=== PATIENT | male | born 1940 | race Caucasian/White ===

== ENCOUNTER → 2021-09-16 | Outpatient (REF) | payer OTHER, SELFPAY ==
[2021-09-16 08:57] LABS: Hematocrit 45.7 % (40-54); Hemoglobin 15.5 g/dL (13.0-16.5); Mean Corp Hgb Conc 33.9 g/dL (32-36); Mean Corpuscular Hgb 30.8 pg (27.0-32.0); Mean Corpuscular Volume 90.7 fL (80-94); Platelet Count 188 K/mm3 (150-450); RBC Distribution Width CV 12.9 % (11.6-14.6); RBC Distribution Width SD 42.5 fl (35.1-43.9); Red Blood Count 5.04 M/mm3 (4.6-6.2)
[2021-09-16 09:37] LABS: ALB/GLOB Ratio 0.9 RATIO (0.9-2.4); AST(SGOT) 19 U/L (15-37); Alanine Aminotransfer ALT/SGPT 20 U/L (16-61); Albumin, Serum 3.1 g/dL (3.2-5.0); Alkaline Phosphatase 86 U/L (45-117); Anion Gap 6 (5-15); BUN 12 mg/dL (7-18); BUN/Creat Ratio 10.8 RATIO (10-20); Calcium,Total 8.5 mg/dL (8.5-10.1); Chloride 108 mmol/L (98-107); Creatinine, Serum 1.11 mg/dL (0.70-1.30); EST Glomerular Filtration Rate 67 mL/min (>60); Est Glom Filt Rate - Afr Amer 81 mL/min (>60); Globulin 3.5 g/dL (2.2-4.2); Glucose 104 mg/dL (74-106); Potassium 4.2 mmol/L (3.5-5.1); Protein, Total 6.6 g/dL (6.4-8.2); Sodium Level 141 mmol/L (136-145); Thyroid Stim Hormone (TSH) 1.46 uIU/mL (0.358-3.74)
== END | disposition home or self-care (01) ==
LOC: OLS.BROOKB 07:42
PROVIDERS: Visit Provider Family Medicine
DX: E03.9 Hypothyroidism, unspecified (principal); F03.90 Unspecified dementia, unspecified severity, without behavioral disturbance, psychotic disturbance, mood disturbance, and anxiety
CPT/HCPCS: 36415; 80053; 84443; 85027

== ENCOUNTER 2021-12-09 11:40 | Emergency (ER) | payer MEDICARE, OTHER, SELFPAY ==
[2021-12-09 11:41] VITALS: BP 123/92; PULSE 98; RESP 18; TEMP 36.6; O2SAT 97; BMI 23.1
--- NOTE | 2021-12-09 11:56 | RAD_ITS ---
STUDY: X-RAY CHEST REASON FOR EXAM: Male, 81 years old. Confusion and increased weakness. TECHNIQUE: Single AP portable view of the chest. COMPARISON: None. FINDINGS: EKG electrodes are seen. The lungs are clear and expanded. There is no demonstrated pleural abnormality. There is mild cardiac enlargement. Normal mediastinum and luis. Normal visualized pulmonary arteries. There is atherosclerotic calcification of the aortic arch with tortuosity. Normal visualized thoracic spine. Normal visualized ribs, clavicles, and shoulders. There is no demonstrated abnormality of the visualized soft tissue structures of the upper abdomen. RAD/Chest 1 View (Portable) IMPRESSION: Mild cardiomegaly. The lungs are clear. Electronically Signed: Tahir Reaves MD at 13:19 EDT ,
--- NOTE | 2021-12-09 11:56 | EKG12_ITS ---
Test Reason : Blood Pressure : / mmHG Vent. Rate : 084 BPM Atrial Rate : 084 BPM P-R Int : 162 ms QRS Dur : 092 ms QT Int : 362 ms P-R-T Axes : -11 039 011 degrees QTc Int : 427 ms Sinus rhythm with marked sinus arrhythmia Low voltage QRS (Limb Leads) Confirmed by BELKIS GAY, ROBERTO ([id number]), avid editor GUANAKO GONZALEZ ([id number]) on 12/11/2021 12:58:01 PM Referred By: Confirmed By:ROBERTO TAMAYO MD
--- NOTE | 2021-12-09 11:56 | CT_ITS ---
STUDY: CT BRAIN WITHOUT CONTRAST REASON FOR EXAM: Male, 81 years old. Mental status change RADIATION DOSAGE (If Supplied By Facility): CTDIvol = ( 44.99 ) mGy, DLP = ( 1659.71 ) mGycm TECHNIQUE: Transaxial CT imaging of the brain was performed without administration of intravenous contrast material. Individualized dose optimization techniques were used for this CT. COMPARISON: No relevant priors. FINDINGS: Normal soft tissue structures. Normal calvarium. There is moderate cerebral atrophy with widening of the extra-axial spaces and ventricular dilatation. There are areas of decreased attenuation within the white matter tracts of the supratentorial brain, consistent with microvascular disease changes. There is a 1.2 cm lacuna in the left basal ganglion. The acuity cannot be determined on a single study. There is also evidence of a tiny lacuna in the head of the left caudate nucleus. Normal brainstem. Normal cerebellum. There is no intracranial hemorrhage. There are no findings of an acute ischemic infarction. Mild degree of mucosal thickening of the maxillary sinuses with partial opacification of the ethmoid sinuses bilaterally. CT/Brain/Head without Contrast IMPRESSION: Chronic involutional changes of the brain. 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 Sinusitis. Electronically Signed: Tahir Reaves MD at 13:17 EDT ,
--- NOTE | 2021-12-09 11:58 | EX.ED.DYSGE1 ---
HPI History of Present Illness Chief Complaint: Weakness Detail of Chief Complaint: Generalized weakness, confusion Informant: patient and family Narrative Narrative: Patient presents the emergency department with complaint of generalized weakness and increased confusion over the last 3 days. Patient in the memory care unit at [place]. He has had a little bit of a cough and a runny nose. No fevers noted. Patient did have 3 episodes of diarrhea last night. He was incontinent which is unusual. Patient has had remote history of prostate cancer with prior prostatectomy. Patient denies head pain. He denies abdominal pain. He does state that he does have chest pain however he does not describe further. Patient is a poor historian due to his history of dementia. He denies dysuria. [facility] Medical History (Updated 12/09/21 @ 15:[address] Niko Lazo DO) Dementia History of prostate cancer [place] (hard of hearing) Home Medications donepezil 10 mg tablet 10 mg PO DAILY 12/09/21 [History Last Taken Unknown] fluticasone furoate 27.5 mcg/actuation nasal spray,suspension (Flonase Sensimist) 2 spray intranasal DAILY 12/09/21 [History Last Taken Unknown] levothyroxine 150 mcg tablet 150 mcg PO DAILY 12/09/21 [History Last Taken Unknown] loratadine 10 mg tablet 10 mg PO DAILY 12/09/21 [History Last Taken Unknown] memantine 5 mg tablet 5 mg PO BID 12/09/21 [History Last Taken Unknown] nirmatrelvir 300 mg (150 mg x2)-ritonavir 100 mg tablet,dose pack(EUA) (Paxlovid) See Rx Instructions PO .COMPLEX #30 tabs 12/09/21 [Rx Last Taken Unknown] Allergy/AdvReac Type Severity Reaction Status Date / Time No Known Allergies Allergy Verified 12/09/21 11:43 Surgical History (Updated 12/09/21 @ 13:01 by Elpidio Hernández RN) History of prostatectomy Hx of cholecystectomy Hx of eye surgery Social History Smoking Status: Never smoker ROS ROS ED ROS Narrative Confusion Review of Systems ROS Unobtainable: other Constitutional Constitutional ED: Reports lethargy; Denies chills, fever(s), sweats or weight loss Eyes Eyes: Denies blurry vision, change in vision or diplopia ENT ENT ED: Reports rhinorrhea; Denies sore throat Cardiovascular Cardiovascular: Reports chest pain; Denies orthopnea or racing heartbeat Respiratory/Chest Respiratory/Chest: Reports cough; Denies dyspnea, dyspnea on exertion, orthopnea or sputum Gastrointestinal Gastrointestinal: Denies abdominal pain, diarrhea, nausea or vomiting Genitourinary Genitourinary ED: Denies dysuria, hematuria or urinary frequency Musculoskeletal Musculoskeletal: Denies arthralgias, back pain, myalgias or neck pain Integumentary Denies abscess, Abrasions or rash Neurologic Neurologic: Reports weakness; Denies headache(s) Psychiatric Psychiatric: Denies anxiety, depression or suicidal thoughts Endocrine Endocrinology: Denies polydipsia, polyphagia or polyuria Hematologic/Lymphatic Hematologic/Lymphatic: Denies easy bleeding, easy bruising or lymphadenopathy Allergic/Immunologic Allergic/Immunologic ED: Denies mouth swelling, tongue swelling or urticaria EXAM Physical Exam Const Vital Signs: 12/09/21 11:41 12/09/21 12:59 12/09/21 13:33 Temperature 97.8 F Temperature Source Temporal Pulse Rate 98 80 Respiratory Rate 18 22 H Respiratory Effort Normal Non-Labored Respiratory Pattern Normal Blood Pressure 123/92 H 120/75 Blood Pressure Mean 102 90 Pulse Ox 97 94 Oxygen Delivery Method Room Air Room Air Positive well nourished and well developed General Appearance ED: well developed and NAD HEENT Reports TM's clear and moist mucous membranes normocephalic and atraumatic; Negative for trauma or tenderness Tympanic Membrane ED: Yes TM's clear Eyes PERRL and EOMs intact bilaterally General Eye ED: Negative for pale conjunctiva or scleral icterus Neck no lymphadenopathy, supple and no JVD General: Negative for tenderness Chest Wall inspection of chest normal and palpation of chest normal Chest: Negative for tenderness Resp normal respiratory effort and clear to auscultation bilaterally Effort and Inspection: Negative for respiratory distress or pain with movement Auscultation: Negative for rhonchi, wheezes or diminished lung sounds Cardio regular rate, regular rhythm, S1 normal heart sound, S2 normal heart sound and no murmurs Peripheral Pulses: pulses 2+ throughout GI normal to inspection, nondistended, normoactive bowel sounds, soft to palpation, non-tender, non-distended and no masses Back/Spine no CVA tenderness and no thoracic nor lumbar tenderness Extremity normal to inspection General Extremety ED: Negative for edema General Extremity: Negative for edema Neuro oriented x3, CN's II-XII intact bilaterally, no sensory deficits noted and gait normal Sensorium / Orientation: awake, alert, oriented to person, oriented to place and oriented to time Motor Exam: strength 5/5 throughout and strength abnormal Psych mental status grossly normal Skin no rashes or lesions noted and no wounds MDM MDM MDM Narrative Medical decision making narrative: IV line established. EKG obtained showed a sinus rhythm with a rate of 84 bpm with occasional PACs. Lab work-up essentially unremarkable. Troponin was normal. CT brain unremarkable. Chest x-ray showed nothing acute. Patient was positive for COVID-19. We attempted to obtain a urinalysis unsuccessfully. We did do a bladder scan he had 160 cc of urine in the bladder. Patient's becoming agitated and family did not want us to forcibly perform a straight cath for urine as patient's likely symptomatology related to COVID-19 infection. They will be able to check a urine at the [facility]. Patient is able to go on his own. Patient will be started on Paxil of it. Patient will be discharged back to [facility]. Lab Data Attestation: I reviewed the patient's lab results. Labs: Laboratory Results - last 24 hr 12/09/21 12/09/21 12:33 12:33 WBC 9.4 RBC 5.50 Hgb 16.6 H Hct 49.5 MCV 90.0 MCH 30.2 MCHC 33.5 RDW Std Deviation 43.4 RDW Coeff of Leonel 13.2 Plt Count 174 MPV 11.1 Immature Gran % (Auto) 0.400 Neut % (Auto) 75.3 H Lymph % (Auto) 13.9 L [place] % (Auto) 9.5 Eos % (Auto) 0.6 Baso % (Auto) 0.3 Absolute Neuts (auto) 7.1 Absolute Lymphs (auto) 1.31 Nucleated RBC % 0 Sodium 140 Potassium 3.7 Chloride 107 Carbon Dioxide 27.0 Anion Gap 6 BUN 11 Creatinine 1.11 Estim Creat Clear Calc 56.29 Est GFR (MDRD) Af Amer 81 Est GFR (MDRD) Non-Af 67 BUN/Creatinine Ratio 9.9 L Glucose 119 H Calcium 8.8 Troponin I High Sens 14 Radiography Diagnostic Testing: Clinical Impression(s) from Imaging Studies Brain CT 12/09/21 11:56 IMPRESSION: Chronic involutional changes of the brain. 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 Sinusitis. Electronically Signed: Tahir Reaves MD at 13:17 EDT , Chest X-Ray 12/09/21 11:56 IMPRESSION: Mild cardiomegaly. The lungs are clear. Electronically Signed: Tahir Reaves MD at 13:19 EDT , Discharge Plan Triage Chief Complaint: Weakness ED Provider: Niko Lazo Dx/Rx/DC Orders Clinical Impression: COVID-19, Acute confusion, Weakness generalized Instructions: Caring for Someone Who Has COVID-19, ED Confusion Prescriptions: New Paxlovid (EUA) 300 mg (150 mg x 2)-100 mg tablets,dose pack See Rx Instructions .ROUTE .COMPLEX Qty: 30 0RF Rx Instructions: take TWO 150 mg tablets of nirmatrelvir with ONE 100 mg tablet of ritonavir twice daily for 5 days No Action donepezil 10 mg tablet 10 mg PO DAILY Label Comments: take 1 tablet by mouth every morning levothyroxine 150 mcg tablet 150 mcg PO DAILY Label Comments: take 1 tablet by mouth once daily loratadine 10 mg Tablet 10 mg PO DAILY Flonase Sensimist 27.5 mcg/actuation [place],Suspension 2 spray INTRANASAL DAILY Rx Instructions: into each nostril memantine 5 mg tablet 5 mg PO BID Primary Care Provider: NOT,DEFINED Referrals: NOT,DEFINED [Primary Care Provider] - Activity Restrictions/Additional Instructions: Follow-up with primary care physician in 3 to 5 days. Disposition Disposition: Home, Self Care
--- NOTE | 2021-12-09 12:01 | NURSING ---
NO OLD EKGS
[2021-12-09 12:46] LABS: Absolute Lymphocyte Count 1.31 X10^3/uL (0.83-4.51); Absolute Neutrophil Count 7.1 X10^3/uL (2.0-7.7); Basophil# 0.03 X10^3/uL; Basophil% 0.3 % (0-1); Eosinophil# 0.06 X10^3/uL; Eosinophils% 0.6 % (0-5); Hematocrit 49.5 % (40-54); Hemoglobin 16.6 g/dL (13.0-16.5); Lymphocyte # 1.31 X10^3/ul (0.83-4.51); Lymphocyte % 13.9 % (19-41); Mean Corp Hgb Conc 33.5 g/dL (32-36); Mean Corpuscular Hgb 30.2 pg (27.0-32.0); Mean Platelet Vol. 11.1 fl (6.2-12.0); Monocyte% 9.5 % (0-10); NRBC Flagged by Analyzer 0 % (0-5); Neutrophil # 7.09 X10^3/uL (2.7-7.7); Neutrophil % 75.3 % (47-70); Platelet Count 174 K/mm3 (150-450); RBC Distribution Width CV 13.2 % (11.6-14.6); RBC Distribution Width SD 43.4 fl (35.1-43.9); White Blood Count 9.4 K/mm3 (4.4-11.0)
[2021-12-09 13:03] LABS: Anion Gap 6 (5-15); BUN 11 mg/dL (7-18); BUN/Creat Ratio 9.9 RATIO (10-20); Calcium,Total 8.8 mg/dL (8.5-10.1); Chloride 107 mmol/L (98-107); Creatinine, Serum 1.11 mg/dL (0.70-1.30); EST Glomerular Filtration Rate 67 mL/min (>60); Est Glom Filt Rate - Afr Amer 81 mL/min (>60); Estimated Creatinine Clearance 56.29 ml/min; Glucose 119 mg/dL (74-106); Potassium 3.7 mmol/L (3.5-5.1); Sodium Level 140 mmol/L (136-145); Troponin-I HS 14 pg/mL (3.0-78.0)
[2021-12-09] MEDS: 0.9% Normal Saline 1,000 ML 150 ML IV (13:31)
[2021-12-09 13:33] VITALS: BP 120/75; PULSE 80; RESP 22; O2SAT 94
[2021-12-09 16:13] VITALS: BP 129/80; PULSE 82; RESP 20; O2SAT 96
== END 2021-12-09 16:10 | disposition home or self-care (01) ==
PROVIDERS: Emergency Provider Emergency Medicine; PCP Family Medicine; Visit Provider Emergency Medicine
DX: U07.1 COVID-19 (principal); R41.0 Disorientation, unspecified; R53.1 Weakness; R32 Unspecified urinary incontinence; Z79.899 Other long term (current) drug therapy
CPT/HCPCS: 70450; 71045; 80048; 84484; 85025; 87040; 87428; 93005; 99283; J7030; A4216

== ENCOUNTER → 2022-03-04 | Outpatient (REF) | payer MEDICARE, SELFPAY ==
[2022-03-05 09:56] LABS: Bacteria 0 SEEN /hpf (None Seen); Red Blood Cells-Urine 0 SEEN /hpf (0-5); Squamous Epithelial Cells - UA 0 SEEN /hpf (0-5); White Blood Cells 0 SEEN /hpf (0-5)
[2022-03-05 10:39] LABS: Color, Urine Yellow (Yellow); Glucose, Dipstick Normal (Normal); Ketone-Dipstick Negative (Negative); Leukocyte Esterase-Dipstick Negative /ul (Negative); Nitrite-Dipstick Negative (Negative); Occult Blood-Urine Negative /ul (Negative); Protein-Dipstick Negative (Negative); Urine Bilirubin Dipstick Negative (Negative); Urine Clarity Clear (Clear); Urine Urobilinogen Normal (Normal)
[2022-03-05 11:06] LABS: Mucous, Urine 1+ /hpf (<or=2+)
== END ==
LOC: OLS.BROOKB 20:20
PROVIDERS: PCP Family Medicine; Visit Provider Family Medicine
DX: N39.0 Urinary tract infection, site not specified (principal)
CPT/HCPCS: 81001; 87086; 87088

== ENCOUNTER → 2022-05-10 | Outpatient (REF) | payer MEDICARE, SELFPAY ==
[2022-05-10 10:42] LABS: Bacteria 0 SEEN /hpf (None Seen); Mucous, Urine 0 SEEN /hpf (<or=2+); Red Blood Cells-Urine 0 SEEN /hpf (0-5); Squamous Epithelial Cells - UA 0 SEEN /hpf (0-5); White Blood Cells 0 SEEN /hpf (0-5)
[2022-05-10 11:00] LABS: Color, Urine Yellow (Yellow); Glucose, Dipstick Normal (Normal); Ketone-Dipstick Negative (Negative); Leukocyte Esterase-Dipstick Negative /ul (Negative); Nitrite-Dipstick Negative (Negative); Occult Blood-Urine Negative /ul (Negative); Protein-Dipstick 15 mg/dl (Negative); Urine Bilirubin Dipstick Negative (Negative); Urine Clarity Clear (Clear); Urine Urobilinogen Normal (Normal)
== END ==
LOC: OLS.BROOKB 05:00
PROVIDERS: PCP Family Medicine; Visit Provider Family Medicine
DX: F03.90 Unspecified dementia, unspecified severity, without behavioral disturbance, psychotic disturbance, mood disturbance, and anxiety (principal); Z79.899 Other long term (current) drug therapy
CPT/HCPCS: 81001; 87086; 87088

== ENCOUNTER → 2022-05-18 | Outpatient (REF) | payer MEDICARE, SELFPAY ==
[2022-05-18 08:49] LABS: Hematocrit 44.4 % (40-54); Hemoglobin 15.2 g/dL (13.0-16.5); Mean Corp Hgb Conc 34.2 g/dL (32-36); Mean Corpuscular Hgb 33.3 pg (27.0-32.0); Mean Corpuscular Volume 97.4 fL (80-94); Mean Platelet Vol. 10.8 fl (6.2-12.0); Platelet Count 213 K/mm3 (150-450); RBC Distribution Width CV 13.3 % (11.6-14.6); RBC Distribution Width SD 44.8 fl (35.1-43.9); Red Blood Count 4.56 M/mm3 (4.6-6.2); White Blood Count 5.4 K/mm3 (4.4-11.0)
[2022-05-18 09:08] LABS: Valproic Acid (Depakene) Level 13 ug/mL (50-100)
[2022-05-18 09:14] LABS: ALB/GLOB Ratio 0.8 RATIO (0.9-2.4); AST(SGOT) 17 U/L (15-37); Alanine Aminotransfer ALT/SGPT 11 U/L (16-61); Albumin, Serum 2.8 g/dL (3.2-5.0); Alkaline Phosphatase 76 U/L (45-117); Anion Gap 4 (5-15); BUN 14 mg/dL (7-18); BUN/Creat Ratio 14.1 RATIO (10-20); Calcium,Total 8.4 mg/dL (8.5-10.1); Chloride 110 mmol/L (98-107); Creatinine, Serum 0.99 mg/dL (0.70-1.30); EST Glomerular Filtration Rate 76 mL/min (>60); Est Glom Filt Rate - Afr Amer 93 mL/min (>60); Globulin 3.3 g/dL (2.2-4.2); Glucose 93 mg/dL (74-106); Potassium 4.3 mmol/L (3.5-5.1); Protein, Total 6.1 g/dL (6.4-8.2); Sodium Level 142 mmol/L (136-145)
== END ==
LOC: OLS.BROOKB 04:00
PROVIDERS: PCP Family Medicine; Referring Provider Family Medicine; Visit Provider Family Medicine
DX: F03.90 Unspecified dementia, unspecified severity, without behavioral disturbance, psychotic disturbance, mood disturbance, and anxiety (principal)
CPT/HCPCS: 36415; 80053; 80164; 85027

== ENCOUNTER 2022-09-25 17:58 | Emergency (ER) | payer MEDICARE, SELFPAY ==
[2022-09-25 18:00] VITALS: BP 169/78; PULSE 53; RESP 14; TEMP 36.7; O2SAT 96; BMI 25.0
--- NOTE | 2022-09-25 18:13 | EKG12_ITS ---
Test Reason : cp Blood Pressure : / mmHG Vent. Rate : 057 BPM Atrial Rate : 057 BPM P-R Int : 192 ms QRS Dur : 090 ms QT Int : 424 ms P-R-T Axes : 046 -02 023 degrees QTc Int : 412 ms Sinus bradycardia with sinus arrhythmia Inferior infarct , age undetermined Abnormal ECG Confirmed by KODI GAY, TYLER ([id number]), publishing editor GUANAKO GONZALEZ ([id number]) on 09/26/2022 10:09:25 AM Referred By: Confirmed By:TYLER MARIEE MD
[2022-09-25 18:30] LABS: Absolute Lymphocyte Count 1.76 X10^3/uL (0.83-4.51); Absolute Neutrophil Count 2.8 X10^3/uL (2.0-7.7); Basophil# 0.02 X10^3/uL; Basophil% 0.4 % (0-1); Eosinophil# 0.11 X10^3/uL; Eosinophils% 2.2 % (0-5); Hemoglobin 14.5 g/dL (13.0-16.5); Lymphocyte # 1.76 X10^3/ul (0.83-4.51); Lymphocyte % 35.3 % (19-41); Mean Corpuscular Hgb 30.9 pg (27.0-32.0); Mean Corpuscular Volume 93.8 fL (80-94); Monocyte# 0.34 X10^3/uL; Monocyte% 6.8 % (0-10); NRBC Flagged by Analyzer 0 % (0-5); Neutrophil # 2.75 X10^3/uL (2.7-7.7); Neutrophil % 55.1 % (47-70); Platelet Count 176 K/mm3 (150-450); RBC Distribution Width SD 44.1 fl (35.1-43.9); Red Blood Count 4.69 M/mm3 (4.6-6.2)
--- NOTE | 2022-09-25 18:40 | RAD_ITS ---
STUDY: X-RAY CHEST REASON FOR EXAM: Male, 82 years old. chest pain TECHNIQUE: Frontal and lateral views of the chest. COMPARISON: December 09, 2021 FINDINGS: Left lower lobe infiltrate and/or subsegmental atelectasis. There is no demonstrated pleural abnormality. Normal size heart. Normal mediastinum and luis. Normal visualized pulmonary arteries. Normal visualized aortic arch and descending thoracic aorta. Normal visualized thoracic spine. Normal visualized ribs, clavicles, and shoulders. Moderate hiatal hernia appears more conspicuous. RAD/Chest PA and Lateral IMPRESSION: Increased left lower lobe infiltrate/subsegmental atelectasis. Moderate hiatal hernia. Electronically Signed: Andrew Oconnell MD at 18:56 EDT ,
[2022-09-25 18:42] LABS: AST(SGOT) 18 U/L (15-37); Alanine Aminotransfer ALT/SGPT 15 U/L (16-61); Albumin, Serum 2.9 g/dL (3.2-5.0); Alkaline Phosphatase 69 U/L (45-117); Anion Gap 4 (5-15); BUN 14 mg/dL (7-18); BUN/Creat Ratio 14.8 RATIO (10-20); Bilirubin, Direct 0.06 mg/dL (0.00-0.30); Calcium,Total 7.4 mg/dL (8.5-10.1); Chloride 109 mmol/L (98-107); Creatinine, Serum 0.94 mg/dL (0.70-1.30); EST Glomerular Filtration Rate 81 mL/min (>60); Est Glom Filt Rate - Afr Amer 98 mL/min (>60); Estimated Creatinine Clearance 65.35 ml/min; Globulin 3.3 g/dL (2.2-4.2); Glucose 120 mg/dL (74-106); Potassium 4.1 mmol/L (3.5-5.1); Protein, Total 6.2 g/dL (6.4-8.2); Sodium Level 141 mmol/L (136-145); Troponin-I HS (w/2H Reflex) 3 pg/mL (3.0-78.0)
[2022-09-25 19:00] VITALS: BP 128/60; PULSE 52; RESP 16; O2SAT 99
[2022-09-25 20:00] VITALS: BP 154/75; PULSE 54; RESP 16; O2SAT 99
[2022-09-25 20:21] LABS: Reflex Troponin-HS? (from REC) Y
[2022-09-25 20:38] LABS: Troponin-I HS 5 pg/mL (3.0-78.0)
--- NOTE | 2022-09-25 21:15 | ED.VIS.CHEST ---
HPI History of Present Illness Chief Complaint: Chest Pain Informant: EMS Limited: dementia Narrative Narrative: Patient is an 82-year-old male with history of dementia presenting from [facility] with an episode of chest pain. Per report patient is comfort care only and had episode of chest pain during dinner. EMS gave 4 aspirin and 1 nitro and patient currently has no symptoms. Patient cannot provide any history and does not remember having chest pain. He currently denies any chest pain. No other complaints or concerns at this time. No other history is available. [facility] Medical History Dementia History of prostate cancer [place] (hard of hearing) Home Medications donepezil 10 mg tablet 10 mg PO DAILY 12/09/21 [History Last Taken Unknown] fluticasone furoate 27.5 mcg/actuation nasal spray,suspension (Flonase Sensimist) 2 spray intranasal DAILY 12/09/21 [History Last Taken Unknown] levothyroxine 150 mcg tablet 150 mcg PO DAILY 12/09/21 [History Last Taken Unknown] loratadine 10 mg tablet 10 mg PO DAILY 12/09/21 [History Last Taken Unknown] memantine 5 mg tablet 5 mg PO BID 12/09/21 [History Last Taken Unknown] divalproex 125 mg tablet,delayed release 125 mg PO QHS 09/25/22 [History Last Taken Unknown] hydroxyzine pamoate 25 mg capsule 25 mg PO Q6H 09/25/22 [History Last Taken Unknown] melatonin 10 mg tablet 10 mg PO QHS 09/25/22 [History Last Taken Unknown] Allergy/AdvReac Type Severity Reaction Status Date / Time No Known Allergies Allergy Verified 09/25/22 17:58 Surgical History History of prostatectomy Hx of cholecystectomy Hx of eye surgery Social History Smoking Status: Never smoker ROS ROS ED Review of Systems ROS Unobtainable: due to mental status EXAM Physical Exam Const Vital Signs: 09/25/22 18:00 09/25/22 18:30 09/25/22 19:00 Temperature 98.0 F Temperature Source Temporal Pulse Rate 53 L 52 L Respiratory Rate 14 16 Blood Pressure 169/78 H 128/60 H Blood Pressure Mean 108 82 Pulse Ox 96 99 Oxygen Delivery Method Room Air Room Air Room Air 09/25/22 20:00 Temperature Temperature Source Pulse Rate 54 L Respiratory Rate 16 Blood Pressure 154/75 H Blood Pressure Mean 101 Pulse Ox 99 Oxygen Delivery Method Room Air Positive well nourished and well developed General Appearance ED: well developed and NAD HEENT Reports moist mucous membranes Eyes PERRL and EOMs intact bilaterally Neck supple Resp normal respiratory effort and clear to auscultation bilaterally Cardio regular rhythm and no murmurs Rate: bradycardia GI normal to inspection, nondistended, normoactive bowel sounds, soft to palpation and non-tender Extremity normal to inspection Neuro Neuro Narrative: At his baseline Sensorium / Orientation: awake, alert and oriented to person Motor Exam: Negative for general weakness Psych mental status grossly normal Skin no rashes or lesions noted and no wounds Heart Score History: Slightly/Non-Suspicious ECG: Normal Age: >/= 65 years Risk Factors: 1 or 2 Risk Factors Troponin: </= Normal Limit Score: 3 MDM MDM MDM Narrative Medical decision making narrative: Patient is evaluated for sudden onset of chest pain that occurred at his assisted living. Patient received Tylenol and nitro in route. Squad EKG as well as our EKG are nonischemic. Patient has no complaints at this time. His symptoms have completely resolved. Work-up is largely negative including normal CBC, normal CMP, and normal troponins x2 at 3 and 5. Chest x-ray reviewed by myself as well as radiology shows moderate hiatal hernia and increased left lower lobe subsegmental atelectasis versus infiltrate. As patient does not have any hypoxia, cough, leukocytosis or episodes of reported choking I have a low suspicion for pneumonia and I do not think this requires treatment. He did tell squad that it happened suddenly while at dinner. I wonder if he could have had a food impaction that has since passed as he did receive nitroglycerin which then resolved his pain. Also this could have caused some smooth muscle relaxant of the distal esophagus helping pass it. Patient is able to tolerate p.o. in the ER so I have low suspicion for any lingering food impaction. Patient's daughters are now at the bedside. Reviewed the results and course with them. They are comfortable bringing him back home. I did page out the patient's PCP for close communication. Given return precautions. Encouraged to follow-up with primary care doctor. Patient family agreeable to plan of care. Patient is mildly bradycardic in the ER however this is sinus and chronic. History & Record Review Discussion w/independent historian: EMS personnel and Family Lab Data Attestation: I reviewed the patient's lab results. Labs: Laboratory Results - last 24 hr 09/25/22 09/25/22 17:48 20:10 WBC 5.0 RBC 4.69 Hgb 14.5 Hct 44.0 MCV 93.8 MCH 30.9 MCHC 33.0 RDW Std Deviation 44.1 H RDW Coeff of Leonel 13.0 Plt Count 176 MPV 11.0 Immature Gran % (Auto) 0.200 Neut % (Auto) 55.1 Lymph % (Auto) 35.3 [place] % (Auto) 6.8 Eos % (Auto) 2.2 Baso % (Auto) 0.4 Absolute Neuts (auto) 2.8 Absolute Lymphs (auto) 1.76 Nucleated RBC % 0 Sodium 141 Potassium 4.1 Chloride 109 H Carbon Dioxide 28.0 Anion Gap 4 L BUN 14 Creatinine 0.94 Estim Creat Clear Calc 65.35 Est GFR (MDRD) Af Amer 98 Est GFR (MDRD) Non-Af 81 BUN/Creatinine Ratio 14.8 Glucose 120 H Calcium 7.4 L Total Bilirubin 0.20 Direct Bilirubin 0.06 AST 18 ALT 15 L Alkaline Phosphatase 69 Troponin I High Sens 3 5 Total Protein 6.2 L Albumin 2.9 L Globulin 3.3 Radiography Chest X-Ray - ED: 2 View, Read by ED Physician, Read by Radiologist and No Acute Disease Diagnostic Testing: Clinical Impression(s) from Imaging Studies Chest X-Ray 09/25/22 18:40 IMPRESSION: Increased left lower lobe infiltrate/subsegmental atelectasis. Moderate hiatal hernia. Electronically Signed: Andrew Oconnell MD at 18:56 EDT , Rhythm Strip Rhythm Strip: Sinus Rhythm Rate: 57 Ectopy: None EKG Initial EKG: Attestation: I personally reviewed and interpreted this EKG as follows: Interpretation: Sinus Bradycardia Comments: Sinus bradycardia with sinus arrhythmia at a rate of 57 bpm Normal axis Normal intervals Normal ST segments No change prior to prior EKG Discharge Plan Triage Chief Complaint: Chest Pain ED Provider: Viviane Michael Dx/Rx/DC Orders Clinical Impression: Bradycardia, Chest pain of uncertain etiology Instructions: ED Chest Pain, Uncertain Cause Prescriptions: No Action donepezil 10 mg tablet 10 mg PO DAILY Patient Comments: take 1 tablet by mouth every morning levothyroxine 150 mcg tablet 150 mcg PO DAILY Patient Comments: take 1 tablet by mouth once daily loratadine 10 mg Tablet 10 mg PO DAILY Flonase Sensimist 27.5 mcg/actuation [place],Suspension 2 spray INTRANASAL DAILY Rx Instructions: into each nostril memantine 5 mg tablet 5 mg PO BID divalproex 125 mg tablet,delayed release (DR/EC) 125 mg PO QHS hydroxyzine pamoate 25 mg capsule 25 mg PO Q6H melatonin 10 mg tablet 10 mg PO QHS Primary Care Provider: Kavya Cardona Referrals: Kavya Cardona MD [Primary Care Provider] - Activity Restrictions/Additional Instructions: Yony's work-up was largely normal today. There is a questionable area of infiltrate versus atelectasis of the left lower lobe. As he currently does not have a fever, elevated white blood cell count, new cough or hypoxia do not think it is pneumonia and I do not think he requires antibiotics. This can be watched for further development of symptoms. It is possible that there is a piece of food stuck in his esophagus earlier today that causes symptoms however I do not have a way of proving this.
== END 2022-09-25 21:39 | disposition home or self-care (01) ==
PROVIDERS: Emergency Provider Emergency Medicine; PCP Family Medicine; Visit Provider Emergency Medicine
DX: R00.1 Bradycardia, unspecified (principal); F03.90 Unspecified dementia, unspecified severity, without behavioral disturbance, psychotic disturbance, mood disturbance, and anxiety; R07.9 Chest pain, unspecified; Z79.899 Other long term (current) drug therapy
CPT/HCPCS: 71046; 80048; 80076; 84484; 85025; 93005; 99285; A4216

== ENCOUNTER 2022-10-20 09:13 | Emergency (ER) | payer MEDICARE, OTHER, SELFPAY ==
[2022-10-20 09:15] VITALS: BP 140/61; PULSE 46; RESP 20; TEMP 36.4; O2SAT 98; BMI 25.0
--- NOTE | 2022-10-20 09:36 | EDS_ITS ---
HPI HPI - Fall History of Present Illness Chief Complaint: Fall Detail of Chief Complaint: Fell at the [facility]. Knee abrasions. Right wrist bruise. Informant: patient and EMS Occured/Mechanism Occurred: Today and Hours Mechanism/Context: Yes same level fall and Yes cannot recall fall Pain/Injury Pain Location: upper extremity and lower extremity Quality of Pain: Dull and Aching Current Severity: Mild Maximum Severity: Mild Associated Symptoms Associated Symptoms: Negative for Parasthesias, Weakness, Loss of function, Inability to ambulate, Loss of consciousness or Amnesia Narrative Narrative: 82-year-old male from [facility] in the memory unit due to dementia. Reportedly fell today at their facility landing on both knees. Patient is reportedly DNR comfort care. He is a limited informant due to his dementia. There is no one else present in the room. Prior similar symptoms: No Recent Illness/Hospitalization: No PFSH PFSH Medical History Dementia History of prostate cancer [place] (hard of hearing) Home Medications donepezil 10 mg tablet 10 mg PO DAILY 12/09/21 [History Last Taken Unknown] fluticasone furoate 27.5 mcg/actuation nasal spray,suspension (Flonase Sensimist) 2 spray intranasal DAILY 12/09/21 [History Last Taken Unknown] levothyroxine 150 mcg tablet 150 mcg PO DAILY 12/09/21 [History Last Taken Unknown] loratadine 10 mg tablet 10 mg PO DAILY 12/09/21 [History Last Taken Unknown] memantine 5 mg tablet 5 mg PO BID 12/09/21 [History Last Taken Unknown] divalproex 125 mg tablet,delayed release 125 mg PO QHS 09/25/22 [History Last Taken Unknown] hydroxyzine pamoate 25 mg capsule 25 mg PO Q6H 09/25/22 [History Last Taken Unknown] melatonin 10 mg tablet 10 mg PO QHS 09/25/22 [History Last Taken Unknown] Allergy/AdvReac Type Severity Reaction Status Date / Time No Known Allergies Allergy Verified 09/25/22 17:58 Surgical History History of prostatectomy Hx of cholecystectomy Hx of eye surgery Social History Smoking Status: Never smoker ROS ROS ED ROS Narrative Due to patient's dementia limited informant. He denies any recent illness. Review of Systems ROS Unobtainable: due to mental status Constitutional Constitutional ED: Denies chills or fever(s) Eyes Eyes: Denies blurry vision ENT ENT ED: Denies ear pain Cardiovascular Cardiovascular: Denies chest pain Respiratory/Chest Respiratory/Chest: Denies cough or dyspnea Genitourinary Genitourinary ED: Denies dysuria Musculoskeletal Musculoskeletal: Denies arthralgias Integumentary Denies abscess Neurologic Neurologic: Denies headache(s) Psychiatric Psychiatric: Denies anxiety Endocrine Endocrinology: Denies polydipsia Hematologic/Lymphatic Hematologic/Lymphatic: Denies easy bleeding or easy bruising Allergic/Immunologic Allergic/Immunologic ED: Denies mouth swelling or tongue swelling EXAM Physical Exam Narrative Exam Narrative: 82-year-old male vital signs are stable afebrile. He does not look septic or toxic. He is alone in the room. On the monitor he is bradycardic but has a go od blood pressure 140/61. H EENT exam unremarkable atraumatic. C-spine nontender. Trachea midline. Lungs clear to auscultation bilaterally. Heart bradycardic in the 40s no murmur. Chest wall sternum and ribs are nontender. Abdomen soft nontender. Back and spine are nontender. Looks like he has had prior lumbar surgery. With well-healed surgical scar. Moving all 4 extremities. He has a bruise on the palm of his hand and wrist is mildly tender. No deformity. He is able to do flexion extension. No significant swelling. Left upper extremity is unremarkable. He has abrasions of both knees but is able to flex extend both knees hips and ankles without any difficulty. No deformity. No significant tenderness. Ligaments appear to be intact. No significant knee effusions. Neurologically he is awake. His eyes are open. He is following commands. He is answering questions. He is limited due to his dementia. Const Vital Signs: 10/20/22 09:15 10/20/22 09:18 Temperature 97.6 F L Temperature Source Temporal Pulse Rate 46 L Respiratory Rate 20 H Respiratory Effort Normal Respiratory Depth Normal Respiratory Pattern Normal Blood Pressure 140/61 H Blood Pressure Mean 87 Pulse Ox 98 Oxygen Delivery Method Room Air Room Air Positive well nourished and well developed; Negative for obese, cachectic, contractures or unkempt General Appearance ED: well developed and NAD; Negative for unkempt, cachectic or contractures Nutritional Appearance: Negative for cachectic or obese HEENT Reports normocephalic atraumatic; Negative for trauma, contusion, hematoma or tenderness Eyes PERRL and EOMs intact bilaterally General Eye ED: Negative for pale conjunctiva or scleral icterus Neck full ROM, no lymphadenopathy and supple General: Negative for tenderness Chest Wall inspection of chest normal and palpation of chest normal Chest: Negative for other Resp normal respiratory effort, no retractions and clear to auscultation bilaterally Effort and Inspection: Negative for pain with movement Auscultation: Negative for rales, rhonchi or wheezes Cardio regular rhythm, S1 normal heart sound, S2 normal heart sound and no murmurs; Negative for regular rate Rate: bradycardia Rhythm: Negative for abnormal rhythm Bruits: Negative for other GI non-tender, non-distended and no masses Inspection: Negative for abdominal distention Auscultation: normoactive bowel sounds Palpation: Negative for soft or guarding Back/Spine no CVA tenderness Cervical Spine: Negative for cervical spine tenderness Thoracic Spine / Upper Back: Negative for ROM limited Lumbar Spine / Lower Back: Negative for lumbar spinal tenderness Neuro No oriented x3, moves all extremities and no focal motor deficits Neuro Narrative: History of dementia. Sensorium / Orientation: alert, oriented to person and confused; Negative for oriented to place, oriented to time, orientation impaired, lethargic or stuporous Motor Exam: strength 5/5 throughout Psych mental status grossly normal and thought process normal Appearance: Negative for unkempt Attitude: No agitated Mood & Affect: Negative for depressed, anxious or tearful Skin Skin Narrative: Bilateral knee abrasions. Bruising right palm and wrist. General Skin Exam: Negative for other Lesions: no lesions Rashes: no rashes Trauma: abrasion MDM MDM MDM Narrative Medical decision making narrative: 82-year-old demented male fell injuring his right wrist and abrasions of both knees. He has full range of motion of his knees there is no significant swelling or tenderness settings are just abrasions. He is mildly tender of the right wrist with a bruise in the palm x-ray will be obtained of the right wrist. I was able to speak to the patient's daughter who is a registered nurse, Toma, she is actually on her way to the emergency department to see her dad. She said this is his baseline. He is DNR. They do not want extensive work-up. He has a history of bradycardia and typically his heart rate is between 45 and 55. She is comfortable with the wrist x-ray. She and I will talk when she arrives. Repeat exam patient is doing well at 10:28 AM. Awaiting his sister's arrival saying speak with her. He will be ambulated by nursing. Patient and I discussed his x-ray results. Patient's sister did arrive and I spoke to her around 1055 and they will take him back to the [facility]. History & Record Review Discussion w/independent historian: EMS personnel and Patient Additional record(s) reviewed:: Prior inpatient record, Prior outpatient record, Prior ED visit, Prior labs and No prior records Radiography Diagnostic Testing: Clinical Impression(s) from Imaging Studies Wrist X-Ray 10/20/22 10:05 IMPRESSION: Degenerative changes. Electronically Signed: Luna Bustos MD at 10:30 EDT , Right wrist x-ray, 3 views, interpreted by myself shows no acute abnormality. No fracture. No dislocation. Chronic changes consistent with arthritis. Discharge Plan Triage Chief Complaint: Fall ED Provider: Zhang Diaz Dx/Rx/DC Orders Clinical Impression: History of dementia, History of bradycardia, Abrasion of both knees, Fall, Contusion of right wrist Instructions: ED Abrasion, ED Soft Tissue Contusion Prescriptions: No Action donepezil 10 mg tablet 10 mg PO DAILY Patient Comments: take 1 tablet by mouth every morning levothyroxine 150 mcg tablet 150 mcg PO DAILY Patient Comments: take 1 tablet by mouth once daily loratadine 10 mg Tablet 10 mg PO DAILY Flonase Sensimist 27.5 mcg/actuation [place],Suspension 2 spray INTRANASAL DAILY Rx Instructions: into each nostril memantine 5 mg tablet 5 mg PO BID divalproex 125 mg tablet,delayed release (DR/EC) 125 mg PO QHS hydroxyzine pamoate 25 mg capsule 25 mg PO Q6H melatonin 10 mg tablet 10 mg PO QHS Primary Care Provider: Kavya Cardona Referrals: Kavya Cardona MD [Primary Care Provider] - As Needed Activity Restrictions/Additional Instructions: Keep both knees clean apply antibiotic ointment daily and watch for any signs of infection. Ice to his right wrist. The wrist was x-rayed but there is nothing broken. Tylenol for pain. Follow-up with his doctor if not improving. Disposition Disposition: Home, Self Care
--- NOTE | 2022-10-20 10:05 | RAD_ITS ---
INDICATION: wrist trauma EXAMINATION/TECHNIQUE: X-RAY - RIGHT XR Wrist Min 3 Views 3 VIEWS COMPARISON: No relevant prior comparison study available FINDINGS: SOFT TISSUES: No soft tissue swelling or gas. No radiopaque foreign body. BONES/JOINTS: No acute fracture or subluxation.. Normal alignment. There are degenerative changes throughout the wrist, most pronounced at the first carpometacarpal joint. No sclerotic or destructive changes observed. RAD/Wrist min 3 Views IMPRESSION: Degenerative changes. Electronically Signed: Luna Bustos MD at 10:30 EDT ,
[2022-10-20 10:58] VITALS: BP 139/55; PULSE 47; O2SAT 97
== END 2022-10-20 11:07 | disposition home or self-care (01) ==
LOC: ED 10:42
PROVIDERS: Emergency Provider Emergency Medicine; PCP Family Medicine; Visit Provider Emergency Medicine
DX: S80.212A Abrasion, left knee, initial encounter (principal); F03.90 Unspecified dementia, unspecified severity, without behavioral disturbance, psychotic disturbance, mood disturbance, and anxiety; S80.211A Abrasion, right knee, initial encounter; S60.211A Contusion of right wrist, initial encounter; Z79.899 Other long term (current) drug therapy; W19.XXXA Unspecified fall, initial encounter
CPT/HCPCS: 73110; 99284

== ENCOUNTER → 2022-10-21 | Outpatient (REF) | payer MEDICARE, SELFPAY ==
[2022-10-21 09:33] LABS: Hematocrit 44.1 % (40-54); Hemoglobin 15.2 g/dL (13.0-16.5); Mean Corp Hgb Conc 34.5 g/dL (32-36); Mean Corpuscular Hgb 32.8 pg (27.0-32.0); Platelet Count 186 K/mm3 (150-450); RBC Distribution Width CV 13.2 % (11.6-14.6); RBC Distribution Width SD 43.8 fl (35.1-43.9); Red Blood Count 4.64 M/mm3 (4.6-6.2); White Blood Count 5.2 K/mm3 (4.4-11.0)
[2022-10-21 11:26] LABS: ALB/GLOB Ratio 0.8 RATIO (0.9-2.4); AST(SGOT) 17 U/L (15-37); Alanine Aminotransfer ALT/SGPT 19 U/L (16-61); Albumin, Serum 3.2 g/dL (3.2-5.0); Alkaline Phosphatase 84 U/L (45-117); Anion Gap 3 (5-15); BUN 17 mg/dL (7-18); BUN/Creat Ratio 15.2 RATIO (10-20); Calcium,Total 8.6 mg/dL (8.5-10.1); Chloride 109 mmol/L (98-107); Creatinine, Serum 1.12 mg/dL (0.70-1.30); EST Glomerular Filtration Rate 66 mL/min (>60); Est Glom Filt Rate - Afr Amer 80 mL/min (>60); Globulin 3.8 g/dL (2.2-4.2); Glucose 105 mg/dL (74-106); Sodium Level 141 mmol/L (136-145); Thyroid Stim Hormone (TSH) 0.48 uIU/mL (0.358-3.74)
== END ==
LOC: OLS.BROOKB 05:00
PROVIDERS: PCP Family Medicine; Visit Provider Family Medicine
DX: E03.9 Hypothyroidism, unspecified (principal); R00.1 Bradycardia, unspecified
CPT/HCPCS: 36415; 80053; 84443; 85027

== ENCOUNTER 2022-11-04 08:03 | Emergency (ER) | payer MEDICARE, OTHER, SELFPAY ==
[2022-11-04 08:05] VITALS: BP 153/71; PULSE 82; RESP 20; TEMP 35.2; O2SAT 96
--- NOTE | 2022-11-04 08:30 | CT_ITS ---
STUDY: CT BRAIN WITHOUT CONTRAST REASON FOR EXAM: Male, 82 years old. Fall, syncope RADIATION DOSAGE (If Supplied By Facility): CTDIvol = ( 47.06 ) mGy, DLP = ( 960.91 ) mGycm TECHNIQUE: Transaxial CT imaging of the brain was performed without administration of intravenous contrast material. Individualized dose optimization techniques were used for this CT. COMPARISON: Comparison is made with prior study dated December 09, 2021. FINDINGS: Normal soft tissue structures. Normal calvarium. There is disproportionate enlargement of the lateral and third ventricles, as compared to the extra-axial spaces. The findings suggest normal pressure hydrocephalus (NPH). There are areas of decreased attenuation within the white matter tracts of the supratentorial brain, consistent with microvascular disease changes. 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 Normal brainstem. Normal cerebellum. There is no intracranial hemorrhage. There are no findings of an acute ischemic infarction. Atherosclerotic plaque formation of the cavernous portions of the internal carotid arteries bilaterally. Mild degree of mucosal thickening of the maxillary sinuses bilaterally. CT/Brain/Head without Contrast IMPRESSION: Chronic involutional changes of the brain. Findings suggestive of normal pressure hydrocephalus. Electronically Signed: Tahir Reaves MD at 9:13 EDT ,
--- NOTE | 2022-11-04 08:31 | EKG12_ITS ---
Test Reason : Blood Pressure : / mmHG Vent. Rate : 056 BPM Atrial Rate : 056 BPM P-R Int : 190 ms QRS Dur : 100 ms QT Int : 458 ms P-R-T Axes : -20 018 034 degrees QTc Int : 441 ms Sinus bradycardia Otherwise normal ECG Confirmed by KODI GAY, TYLER ([id number]), assistant production editor MODESTA RAINEY ([id number]) on 11/06/2022 1:10:05 PM Referred By: Confirmed By:TYLER MARIEE MD
--- NOTE | 2022-11-04 08:33 | EX.ED.DYSGE1 ---
HPI History of Present Illness Chief Complaint: Syncope Informant: EMS and SNF Narrative Narrative: Patient presents from local ECF secondary to syncopal episode. Per report, patient clenched his chest and then had a brief syncopal episode. When EMS called report they stated that he was responsive to painful stimulus. On arrival patient is sitting up and looking around the room. Patient has a history of dementia and is DNR comfort care. I spoke with the patient's daughter on the phone who states typically he will still recognize family members and will follow commands. Daughter states the patient did have a recent syncopal episode that was thought to be secondary to his bradycardia. There was some discussion of starting him on midodrine but she does not believe this was ever initiated. We did discuss work-up including lab work, chest x-ray, EKG to give family more information so they can make better decisions. She is comfortable with this plan. She is in route to the hospital to see her father. [facility] Medical History Dementia History of prostate cancer [place] (hard of hearing) Home Medications donepezil 10 mg tablet 10 mg PO DAILY 12/09/21 [History Last Taken Unknown] fluticasone furoate 27.5 mcg/actuation nasal spray,suspension (Flonase Sensimist) 2 spray intranasal DAILY 12/09/21 [History Last Taken Unknown] levothyroxine 150 mcg tablet 150 mcg PO DAILY 12/09/21 [History Last Taken Unknown] loratadine 10 mg tablet 10 mg PO DAILY 12/09/21 [History Last Taken Unknown] memantine 5 mg tablet 5 mg PO BID 12/09/21 [History Last Taken Unknown] divalproex 125 mg tablet,delayed release 125 mg PO QHS 09/25/22 [History Last Taken Unknown] hydroxyzine pamoate 25 mg capsule 25 mg PO Q6H 09/25/22 [History Last Taken Unknown] melatonin 10 mg tablet 10 mg PO QHS 09/25/22 [History Last Taken Unknown] Allergy/AdvReac Type Severity Reaction Status Date / Time No Known Allergies Allergy Verified 09/25/22 17:58 Surgical History History of prostatectomy Hx of cholecystectomy Hx of eye surgery Social History Smoking Status: Never smoker ROS ROS ED ROS Narrative Patient with history of dementia at baseline. When I asked him if he has pain he states no. Otherwise not able to provide much history. Review of Systems ROS Unobtainable: due to mental condition EXAM Physical Exam Const Vital Signs: 11/04/22 08:05 11/04/22 08:09 11/04/22 09:04 Temperature 95.4 F L Temperature Source Temporal Pulse Rate 82 54 L Respiratory Rate 20 H 18 Respiratory Effort Normal Non-Labored Respiratory Pattern Normal Blood Pressure 153/71 H 124/67 H Blood Pressure Mean 98 86 Pulse Ox 96 94 Oxygen Delivery Method Room Air 11/04/22 10:04 11/04/22 11:00 Temperature Temperature Source Pulse Rate 66 Respiratory Rate 20 H Respiratory Effort Respiratory Pattern Blood Pressure 149/71 H 137/76 H Blood Pressure Mean 97 96 Pulse Ox 94 Oxygen Delivery Method Room Air Positive well nourished and well developed General Appearance ED: well developed HEENT Reports moist mucous membranes Eyes EOMs intact bilaterally Chest Wall inspection of chest normal and palpation of chest normal Resp normal respiratory effort and clear to auscultation bilaterally Cardio regular rate and regular rhythm GI non-tender Palpation: soft Extremity normal to inspection Extremity Narrative: Equal leg lengths bilaterally. No pain with logroll of his hips and no pain with palpation over the hips. Moves both upper extremities without difficulty. Neuro Neuro Narrative: Patient looks around the room. Will grunt and answer occasional questions. Skin Skin Narrative: No abrasions or ecchymoses noted MDM MDM MDM Narrative Medical decision making narrative: After discussion with family, initial work-up will be undertaken. EKG obtained to evaluate for cardiac arrhythmia/ischemia. Chest x-ray obtained to evaluate for acute lung pathology, cardiac size, or mediastinal abnormality. Labwork obtained to evaluate for leukocytosis, anemia, and electrolyte derangement. CT scan of the head obtained to evaluate for bleed, edema, stroke. History & Record Review Discussion w/independent historian: EMS personnel, Patient and Family Lab Data Attestation: I reviewed the patient's lab results. Labs: Laboratory Results - last 24 hr 11/04/22 08:10 WBC 9.8 RBC 5.11 Hgb 16.6 H Hct 50.3 MCV 98.4 H MCH 32.5 H MCHC 33.0 RDW Std Deviation 45.8 H RDW Coeff of Leonel 12.9 Plt Count 247 MPV 11.0 Immature Gran % (Auto) 0.600 Neut % (Auto) 31.6 L Lymph % (Auto) 56.9 H [place] % (Auto) 7.9 Eos % (Auto) 2.4 Baso % (Auto) 0.6 Absolute Neuts (auto) 3.1 Absolute Lymphs (auto) 5.59 H Nucleated RBC % 0 Differential Comment COMMENT Sodium 141 Potassium 3.4 L Chloride 109 H Carbon Dioxide 16.0 L Anion Gap 16 H BUN 14 Creatinine 1.27 Est GFR (MDRD) Af Amer 70 Est GFR (MDRD) Non-Af 58 L BUN/Creatinine Ratio 11.0 Glucose 136 H Calcium 8.4 L Troponin I High Sens 6 Radiography Chest X-Ray - ED: 1 View, Read by ED Physician, Chronic Changes and No Infiltrates Diagnostic Testing: Clinical Impression(s) from Imaging Studies Brain CT 11/04/22 08:30 IMPRESSION: Chronic involutional changes of the brain. Findings suggestive of normal pressure hydrocephalus. Electronically Signed: Tahir Reaves MD at 9:13 EDT , Chest X-Ray 11/04/22 08:45 IMPRESSION: Stable mild increased markings at the left lung base suggestive of left basilar scarring. Hiatal hernia. Electronically Signed: Tahir Reaves MD at 9:09 EDT , EKG Initial EKG: Attestation: I personally reviewed and interpreted this EKG as follows: Interpretation: Sinus Bradycardia (Sinus bradycardia 56 bpm. No acute ischemia.) Treatment and Re-Evaluation :: CBC was normal white count at 9.8 with hemoglobin concentrated at 16.6. Differential is unremarkable. Chemistry studies reveal slightly low potassium at 3.4. Bicarb is low at 16 and anion gap is 16. BUN is 14 and creatinine is 1.27. Glucose is 136. Troponin is normal at 6. EKG is sinus bradycardia with no acute ischemia. Family confirms patient does have a history of bradycardia. Chest x-ray per my interpretation was chronic changes with no focal infiltrate. Radiology interpretation reviewed and agrees. CT scan of the head reveals chronic changes with possible NPH. Test results are all discussed with daughter at bedside. Patient has been given a liter IV fluid here for hydration and has eaten. He appears to be at his baseline per family. I attempted to contact primary care physician but have not received a return call. Apparently there was some discussion about starting the patient on midodrine after his last syncopal episode. I will leave a note to have the ECF contact her for further instructions on this. Addendum: Dr. Cardona did call back after the patient had been discharged. She was updated on the patient's findings. She will contact the ECF regarding further orders. Discharge Plan Triage Chief Complaint: Syncope ED Provider: Bonnie Calderon Dx/Rx/DC Orders Clinical Impression: Syncope Instructions: ED Fainting, Uncertain Cause Prescriptions: No Action donepezil 10 mg tablet 10 mg PO DAILY Patient Comments: take 1 tablet by mouth every morning levothyroxine 150 mcg tablet 150 mcg PO DAILY Patient Comments: take 1 tablet by mouth once daily loratadine 10 mg Tablet 10 mg PO DAILY Flonase Sensimist 27.5 mcg/actuation [place],Suspension 2 spray INTRANASAL DAILY Rx Instructions: into each nostril memantine 5 mg tablet 5 mg PO BID divalproex 125 mg tablet,delayed release (DR/EC) 125 mg PO QHS hydroxyzine pamoate 25 mg capsule 25 mg PO Q6H melatonin 10 mg tablet 10 mg PO QHS Primary Care Provider: Kavya Cardona Referrals: Kavya Cardona MD [Primary Care Provider] - 1 Week Activity Restrictions/Additional Instructions: We attempted to contact Dr. Cardona, but did not receive a return call. Please call her to determine whether patient needs to be started on midodrine as this had been discussed previously. Disposition Disposition: Home, Self Care Discharge Date/Time: 11/04/22 11:18
[2022-11-04 08:44] LABS: Absolute Lymphocyte Count 5.59 X10^3/uL (0.83-4.51); Absolute Neutrophil Count 3.1 X10^3/uL (2.0-7.7); Basophil# 0.06 X10^3/uL; Basophil% 0.6 % (0-1); Eosinophil# 0.24 X10^3/uL; Eosinophils% 2.4 % (0-5); Hematocrit 50.3 % (40-54); Hemoglobin 16.6 g/dL (13.0-16.5); Lymphocyte # 5.59 X10^3/ul (0.83-4.51); Lymphocyte % 56.9 % (19-41); Mean Corpuscular Hgb 32.5 pg (27.0-32.0); Mean Corpuscular Volume 98.4 fL (80-94); Monocyte# 0.78 X10^3/uL; Monocyte% 7.9 % (0-10); NRBC Flagged by Analyzer 0 % (0-5); Neutrophil # 3.09 X10^3/uL (2.7-7.7); Neutrophil % 31.6 % (47-70); POSITIVE DIFFERENTIAL YES; POSITIVE MORPHOLOGY YES; Platelet Count 247 K/mm3 (150-450); RBC Distribution Width CV 12.9 % (11.6-14.6); RBC Distribution Width SD 45.8 fl (35.1-43.9); Red Blood Count 5.11 M/mm3 (4.6-6.2); White Blood Count 9.8 K/mm3 (4.4-11.0)
--- NOTE | 2022-11-04 08:45 | RAD_ITS ---
STUDY: X-RAY CHEST REASON FOR EXAM: Male, 82 years old. Sob TECHNIQUE: Single AP portable view of the chest. COMPARISON: Comparison is made with prior study dated September 17, 2022. FINDINGS: EKG electrodes are seen. Stable mild increased markings with areas of confluence in the left lower lobe suggestive of scarring. There is blunting of the left costophrenic angle. There is mild cardiac enlargement. Normal mediastinum and luis. Normal visualized pulmonary arteries. There is atherosclerotic calcification of the aortic arch with tortuosity. There are diffuse degenerative changes of the visualized thoracic spine. Normal visualized ribs, clavicles, and shoulders. Moderate-sized hiatal hernia. RAD/Chest 1 View (Portable) IMPRESSION: Stable mild increased markings at the left lung base suggestive of left basilar scarring. Hiatal hernia. Electronically Signed: Tahir Reaves MD at 9:09 EDT ,
[2022-11-04 08:50] LABS: Differential Indicated SCAN CRITERIA MET
[2022-11-04] MEDS: 0.9% Normal Saline 1,000 ML 150 ML IV (08:51)
[2022-11-04 09:04] VITALS: BP 124/67; PULSE 54; RESP 18; O2SAT 94
[2022-11-04 09:10] LABS: Anion Gap 16 (5-15); BUN 14 mg/dL (7-18); Calcium,Total 8.4 mg/dL (8.5-10.1); Chloride 109 mmol/L (98-107); Creatinine, Serum 1.27 mg/dL (0.70-1.30); EST Glomerular Filtration Rate 58 mL/min (>60); Est Glom Filt Rate - Afr Amer 70 mL/min (>60); Glucose 136 mg/dL (74-106); Potassium 3.4 mmol/L (3.5-5.1); Sodium Level 141 mmol/L (136-145); Troponin-I HS 6 pg/mL (3.0-78.0)
[2022-11-04] MEDS: 0.9% Normal Saline 1,000 ML 999 ML IV (09:57)
[2022-11-04 10:04] VITALS: BP 149/71; PULSE 66; RESP 20; O2SAT 94
[2022-11-04 11:00] VITALS: BP 137/76
== END 2022-11-04 11:18 | disposition home or self-care (01) ==
PROVIDERS: Emergency Provider Emergency Medicine; PCP Family Medicine; Visit Provider Emergency Medicine
DX: R55 Syncope and collapse (principal)
CPT/HCPCS: 70450; 71045; 80048; 84484; 85025; 93005; 99285; J7030

== ENCOUNTER → 2022-12-06 | Outpatient (REF) | payer MEDICARE, SELFPAY ==
[2022-12-07 09:59] LABS: Bacteria 0 SEEN /hpf (None Seen); Mucous, Urine 0 SEEN /hpf (<or=2+); Red Blood Cells-Urine 0 SEEN /hpf (0-5); White Blood Cells 0 SEEN /hpf (0-5)
[2022-12-07 10:15] LABS: Color, Urine Straw (Yellow); Glucose, Dipstick Normal (Normal); Ketone-Dipstick Negative (Negative); Leukocyte Esterase-Dipstick Negative /ul (Negative); Nitrite-Dipstick Negative (Negative); Occult Blood-Urine Negative /ul (Negative); Protein-Dipstick Negative (Negative); Urine Bilirubin Dipstick Negative (Negative); Urine Clarity Clear (Clear); Urine Urobilinogen Normal (Normal)
[2022-12-07 10:22] LABS: Squamous Epithelial Cells - UA 0-5 SEEN /hpf (0-5)
== END ==
LOC: OLS.BROOKB 09:58
PROVIDERS: PCP Family Medicine; Visit Provider Family Medicine
DX: R41.82 Altered mental status, unspecified (principal)
CPT/HCPCS: 81001; 87086

== ENCOUNTER → 2022-12-08 | Outpatient (REF) | payer MEDICARE, SELFPAY ==
[2022-12-08 09:35] LABS: ALB/GLOB Ratio 0.9 RATIO (0.9-2.4); AST(SGOT) 16 U/L (15-37); Alanine Aminotransfer ALT/SGPT 17 U/L (16-61); Albumin, Serum 3.2 g/dL (3.2-5.0); Alkaline Phosphatase 77 U/L (45-117); Anion Gap 4 (5-15); BUN 15 mg/dL (7-18); BUN/Creat Ratio 15.2 RATIO (10-20); Calcium,Total 8.3 mg/dL (8.5-10.1); Chloride 110 mmol/L (98-107); Creatinine, Serum 0.99 mg/dL (0.70-1.30); EST Glomerular Filtration Rate 77 mL/min (>60); Est Glom Filt Rate - Afr Amer 93 mL/min (>60); Globulin 3.6 g/dL (2.2-4.2); Glucose 86 mg/dL (74-106); Potassium 4.2 mmol/L (3.5-5.1); Protein, Total 6.8 g/dL (6.4-8.2); Sodium Level 139 mmol/L (136-145)
== END ==
LOC: OLS.BROOKB 05:00
PROVIDERS: PCP Family Medicine; Visit Provider Family Medicine
DX: R00.0 Tachycardia, unspecified (principal)
CPT/HCPCS: 36415; 80053

== ENCOUNTER 2022-12-22 08:18 | Emergency (ER) | payer MEDICARE, SELFPAY ==
[2022-12-22 08:19] VITALS: BP 151/82; PULSE 64; RESP 16; TEMP 36; O2SAT 94; BMI 22.8
--- NOTE | 2022-12-22 08:28 | EX.ED.DYSGE1 ---
HPI History of Present Illness Chief Complaint: Confusion Narrative Narrative: History and physical is limited secondary to dementia. According to EMS, patient presents from the memory unit at [place] with increased aggressiveness and elevated heart rate. While the patient has baseline history of dementia, he is usually more pleasant. Today, it was reported that he has been more aggressive with staff, threatening to harm the staff and kill people. While he states that they are able to take care of the psychiatric portion of his aggressiveness, they were concerned about reported elevated heart rate in the 140s, and there was concern for any infectious process. Patient denies any fevers, cough, or pain, but once again his history and physical is limited secondary to dementia as at times he is not interactive with staff, refusing to answer, or he is repetitive in his answers just saying yes or no. [facility] Medical History Dementia History of prostate cancer [place] (hard of hearing) Home Medications donepezil 10 mg tablet 10 mg PO DAILY 12/09/21 [History Last Taken Unknown] fluticasone furoate 27.5 mcg/actuation nasal spray,suspension (Flonase Sensimist) 2 spray intranasal DAILY 12/09/21 [History Last Taken Unknown] levothyroxine 150 mcg tablet 150 mcg PO DAILY 12/09/21 [History Last Taken Unknown] loratadine 10 mg tablet 10 mg PO DAILY 12/09/21 [History Last Taken Unknown] memantine 5 mg tablet 5 mg PO BID 12/09/21 [History Last Taken Unknown] divalproex 125 mg tablet,delayed release 125 mg PO QHS 09/25/22 [History Last Taken Unknown] hydroxyzine pamoate 25 mg capsule 25 mg PO Q6H 09/25/22 [History Last Taken Unknown] melatonin 10 mg tablet 10 mg PO QHS 09/25/22 [History Last Taken Unknown] Allergy/AdvReac Type Severity Reaction Status Date / Time No Known Allergies Allergy Verified 09/25/22 17:58 Surgical History History of prostatectomy Hx of cholecystectomy Hx of eye surgery Social History Smoking Status: Never smoker ROS ROS ED ROS Narrative Admitted secondary to dementia. Obtained through EMS and somewhat through patient. Constitutional: No fever, no chills. HEENT: No sore throat. No neck pain. No loss of vision. No rhinorrhea. Cardiovascular: No chest pain. No palpitations. No pedal edema. Respiratory: No cough, no shortness of breath. Abdominal: No abdominal pain. No nausea. No vomiting. Genitourinary: No dysuria. No hematuria. Musculoskeletal: No myalgias. No arthralgias. Neurologic: No headaches. No dizziness. No lightheadedness. Skin: No rash. No change in color. Psychiatric: No depression. No anxiety. Reported aggressive behavior, threatening. EXAM Physical Exam Narrative Exam Narrative: Afebrile. Vital signs noted. Nontoxic-appearing. No acute distress. HEENT: Normocephalic. Atraumatic. PERRL, EOMI. Neck soft and supple. No point tenderness or step off. Cardiovascular: Regular rate and rhythm. No murmurs, rubs, or gallops appreciated. Respiratory: No tachypnea. Lungs clear to auscultation bilaterally. Gastrointestinal: Abdomen soft, nontender, with normoactive bowel sounds. No rebound or guarding. Neurological: Awake. Alert. Nonfocal, nonlateralizing. 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 Repetitive and answers. Skin: No rash. Normal color. No pallor. Musculoskeletal: No pedal edema. Full range of motion extremities. Const Vital Signs: 12/22/22 08:19 Temperature 96.8 F L Temperature Source Temporal Pulse Rate 64 Respiratory Rate 16 Blood Pressure 151/82 H Blood Pressure Mean 105 Pulse Ox 94 Oxygen Delivery Method Room Air MDM MDM MDM Narrative Medical decision making narrative: Normal heart rate here. I reviewed his prior records. Additionally he is not hypotensive and his heart rate is only 64, he is afebrile here. General work-up was pursued for an infectious process including in the differential pneumonia, COVID, influenza, and urinary tract infection. He also may be dehydrated with an electrolyte imbalance. He was bolused normal saline 1 L intravenously. EKG was obtained and interpreted by myself independently as normal sinus rhythm at 64 bpm without ectopy or acute ST changes. No STEMI. He does have artifact in V1/the rhythm strip. I reviewed his laboratory work and he has a normal white count of 4.9, hemoglobin normal at 15.0, hematocrit 44.9, platelet count normal at 185. Electrolyte panel does show chloride slightly elevated at 111 which I think is nonspecific, BUN normal at 14, creatinine 1.01, glucose is appropriately elevated at 113 with a anion gap low at 2. LFTs are grossly unremarkable and normal. Urinalysis does show RBCs 25-50 but no evidence of infection. This is also nonspecific and microscopic hematuria but I do not feel that antibiotics are indicated. Chest x-ray was obtained and interpreted by myself independently in 1 view, and I see no evidence of an acute pneumonia or pneumothorax. Once again, I do not feel antibiotics are indicated. I reviewed the radiology report which confirms my independent interpretation does comment on his hiatal hernia. COVID and influenza swabs are also negative. His daughters are now at the bedside. They state that it was his heart rate that had shot up. They were reassured, and his current resting heart rate is in the 50s to 60s. He is not aggressive and is resting comfortably and is more responsive here, and pleasant. At this point in time, I feel he can be discharged back to the memory care unit at [place]. I do not feel that he needs psychiatric evaluation emergently. Return instructions to the emergency department were reviewed. Disposition is discharged home in stable condition. History & Record Review Discussion w/independent historian: Patient and Family Additional record(s) reviewed:: Prior ED visit and Prior labs Lab Data Attestation: I reviewed the patient's lab results. Labs: Laboratory Results - last 24 hr 12/22/22 12/22/22 08:45 09:15 WBC 4.9 RBC 4.87 Hgb 15.0 Hct 44.9 MCV 92.2 MCH 30.8 MCHC 33.4 RDW Std Deviation 43.6 RDW Coeff of Leonel 12.7 Plt Count 185 MPV 10.3 Immature Gran % (Auto) 0.200 Neut % (Auto) 60.8 Lymph % (Auto) 28.6 [place] % (Auto) 8.2 Eos % (Auto) 1.6 Baso % (Auto) 0.6 Absolute Neuts (auto) 3.0 Absolute Lymphs (auto) 1.40 Nucleated RBC % 0 Sodium 143 Potassium 4.6 Chloride 111 H Carbon Dioxide 30.0 Anion Gap 2 L BUN 14 Creatinine 1.01 Estim Creat Clear Calc 57.22 Est GFR (MDRD) Af Amer 91 Est GFR (MDRD) Non-Af 75 BUN/Creatinine Ratio 13.9 Glucose 113 H Calcium 8.4 L Total Bilirubin 0.40 AST 16 ALT 16 Alkaline Phosphatase 78 Total Protein 6.7 Albumin 3.1 L Globulin 3.6 Albumin/Globulin Ratio 0.9 Urine Color Yellow Urine Clarity Clear Urine pH 7.0 Ur Specific [place] 1.010 Urine Protein 15 H Urine Glucose (UA) Normal Urine Ketones Negative Urine Occult Blood 250 H Urine Nitrite Negative Urine Bilirubin Negative Urine Urobilinogen Normal Ur Leukocyte Esterase Negative Urine RBC 25-50 SEEN Urine WBC 0-5 SEEN Ur Squamous Epith Cells 0 SEEN Urine Bacteria 0 SEEN Urine Mucus 0 SEEN Radiography Diagnostic Testing: Clinical Impression(s) from Imaging Studies Chest X-Ray 12/22/22 08:57 IMPRESSION: Stable pleural parenchymal changes at the left lung base. Moderate size hiatal hernia. Electronically Signed: Tahir Reaves MD at 9:12 EDT Reading Location ID and State: [facility] / [place] , Service support , Discharge Plan Triage Chief Complaint: Confusion ED Provider: Andres Claros Dx/Rx/DC Orders Clinical Impression: Aggressive behavior, Dementia Instructions: ED DEMENTIA Alzheimer's Prescriptions: No Action donepezil 10 mg tablet 10 mg PO DAILY Patient Comments: take 1 tablet by mouth every morning levothyroxine 150 mcg tablet 150 mcg PO DAILY Patient Comments: take 1 tablet by mouth once daily loratadine 10 mg Tablet 10 mg PO DAILY Flonase Sensimist 27.5 mcg/actuation [place],Suspension 2 spray INTRANASAL DAILY Rx Instructions: into each nostril memantine 5 mg tablet 5 mg PO BID divalproex 125 mg tablet,delayed release (DR/EC) 125 mg PO QHS hydroxyzine pamoate 25 mg capsule 25 mg PO Q6H melatonin 10 mg tablet 10 mg PO QHS Primary Care Provider: Kavya Cardona Referrals: Kavya Cardona MD [Primary Care Provider] - As Needed Activity Restrictions/Additional Instructions: Continue your previous medications and routines. Disposition Disposition: Home, Self Care
[2022-12-22] MEDS: 0.9% Normal Saline (1000mL) 1,000 ML 1000 ML IV (08:54)
--- NOTE | 2022-12-22 08:57 | RAD_ITS ---
STUDY: X-RAY CHEST REASON FOR EXAM: Male, 82 years old. CAD TECHNIQUE: Single AP portable view of the chest. COMPARISON: Comparison is made with prior examination dated November 04, 2022. FINDINGS: Mild increased markings at the left lung base with blunting of the left costophrenic angle suggestive of scarring. There is been no change. There is borderline cardiomegaly. Normal mediastinum and luis. Normal visualized pulmonary arteries. There is atherosclerotic calcification of the aortic arch with tortuosity. There is a dextroscoliosis of the thoracic spine. Normal visualized ribs, clavicles, and shoulders. Moderate-sized hiatal hernia. RAD/Chest 1 View (Portable) IMPRESSION: Stable pleural parenchymal changes at the left lung base. Moderate size hiatal hernia. Electronically Signed: Tahir Reaves MD at 9:12 EDT ,
[2022-12-22 09:00] LABS: Basophil# 0.03 X10^3/uL; Basophil% 0.6 % (0-1); Eosinophil# 0.08 X10^3/uL; Eosinophils% 1.6 % (0-5); Hematocrit 44.9 % (40-54); Lymphocyte % 28.6 % (19-41); Mean Corp Hgb Conc 33.4 g/dL (32-36); Mean Corpuscular Hgb 30.8 pg (27.0-32.0); Mean Corpuscular Volume 92.2 fL (80-94); Mean Platelet Vol. 10.3 fl (6.2-12.0); Monocyte% 8.2 % (0-10); NRBC Flagged by Analyzer 0 % (0-5); Neutrophil # 2.98 X10^3/uL (2.7-7.7); Neutrophil % 60.8 % (47-70); Platelet Count 185 K/mm3 (150-450); RBC Distribution Width CV 12.7 % (11.6-14.6); RBC Distribution Width SD 43.6 fl (35.1-43.9); Red Blood Count 4.87 M/mm3 (4.6-6.2); White Blood Count 4.9 K/mm3 (4.4-11.0)
[2022-12-22 09:18] LABS: ALB/GLOB Ratio 0.9 RATIO (0.9-2.4); AST(SGOT) 16 U/L (15-37); Alanine Aminotransfer ALT/SGPT 16 U/L (16-61); Albumin, Serum 3.1 g/dL (3.2-5.0); Alkaline Phosphatase 78 U/L (45-117); Anion Gap 2 (5-15); BUN 14 mg/dL (7-18); BUN/Creat Ratio 13.9 RATIO (10-20); Calcium,Total 8.4 mg/dL (8.5-10.1); Chloride 111 mmol/L (98-107); Creatinine, Serum 1.01 mg/dL (0.70-1.30); EST Glomerular Filtration Rate 75 mL/min (>60); Est Glom Filt Rate - Afr Amer 91 mL/min (>60); Estimated Creatinine Clearance 57.22 ml/min; Globulin 3.6 g/dL (2.2-4.2); Glucose 113 mg/dL (74-106); Potassium 4.6 mmol/L (3.5-5.1); Protein, Total 6.7 g/dL (6.4-8.2); Sodium Level 143 mmol/L (136-145)
[2022-12-22 09:25] LABS: Bacteria 0 SEEN /hpf (None Seen); Mucous, Urine 0 SEEN /hpf (<or=2+); Squamous Epithelial Cells - UA 0 SEEN /hpf (0-5)
[2022-12-22 09:27] LABS: Color, Urine Yellow (Yellow); Glucose, Dipstick Normal (Normal); Ketone-Dipstick Negative (Negative); Leukocyte Esterase-Dipstick Negative /ul (Negative); Nitrite-Dipstick Negative (Negative); Occult Blood-Urine 250 /ul (Negative); Protein-Dipstick 15 mg/dl (Negative); Urine Bilirubin Dipstick Negative (Negative); Urine Clarity Clear (Clear); Urine Urobilinogen Normal (Normal)
[2022-12-22 09:32] LABS: Red Blood Cells-Urine 25-50 SEEN /hpf (0-5); White Blood Cells 0-5 SEEN /hpf (0-5)
[2022-12-22 11:21] VITALS: BP 155/74; PULSE 59; RESP 20; O2SAT 97
[2022-12-22 11:22] VITALS: BP 155/74; PULSE 59; RESP 20; O2SAT 97
--- NOTE | 2022-12-22 11:25 | NURSING ---
CALLED FOR WHEELCHAIR RIDE, ETA 30 MIN
--- NOTE | 2022-12-22 11:50 | ED.RN ---
THIS RN ATTEMPTED TO CALL REPORT TO [facility] AT 1127 AND 1150. PER ELIGIBILITY SUPERVISOR, NURSE UNABLE TO TAKE CALL DUE TO TALKING ON THE PHONE AND STARTING LUNCH MEDICATION PASS. THIS RN EXPLAINED THAT PT IS LEAVING ER AT 1151. REPORT GIVEN TO [facility] AT [facility]9. PT CALM AND COOPERATIVE FOR SQUAD UPON DISCHARGE.
== END 2022-12-22 11:52 | disposition home or self-care (01) ==
PROVIDERS: Emergency Provider Emergency Medicine; PCP Family Medicine; Visit Provider Emergency Medicine
DX: F03.90 Unspecified dementia, unspecified severity, without behavioral disturbance, psychotic disturbance, mood disturbance, and anxiety (principal)
CPT/HCPCS: 96360; 96361; 99285; 71045; 80053; 81001; 85025; 87428; 93005; J7030; A4216

== ENCOUNTER 2022-12-24 10:48 | Inpatient (IN) | payer MEDICARE, SELFPAY ==
[2022-12-24 10:49] VITALS: BP 147/71; PULSE 62; RESP 18; TEMP 36.5; O2SAT 94; BMI 25.9
--- NOTE | 2022-12-24 11:05 | ED.VIS.FALL ---
HPI HPI - Fall History of Present Illness Chief Complaint: Fall PFSH PFSH Medical History Dementia History of prostate cancer [place] (hard of hearing) Home Medications fluticasone furoate 27.5 mcg/actuation nasal spray,suspension (Flonase Sensimist) 2 spray intranasal DAILY allergies 12/09/21 [History Last Taken 12/24/22] levothyroxine 150 mcg tablet 150 mcg PO DAILY thyroid 12/09/21 [History Last Taken 12/24/22] loratadine 10 mg tablet 10 mg PO DAILY allergies 12/09/21 [History Last Taken 12/24/22] divalproex 125 mg tablet,delayed release 125 mg PO QHS seizures 09/25/22 [History Last Taken 12/23/22] hydroxyzine pamoate 25 mg capsule 25 mg PO Q6H PRN anxiety 09/25/22 [History Last Taken Unknown] melatonin 10 mg tablet 10 mg PO QHS insomnia 09/25/22 [History Last Taken 12/23/22] hydroxyzine pamoate 25 mg capsule 25 mg PO DINNER anxiety 12/24/22 [History Last Taken 12/23/22] midodrine 2.5 mg tablet 2.5 mg PO TID blood pressure 12/24/22 [History Last Taken 12/24/22] Allergy/AdvReac Type Severity Reaction Status Date / Time No Known Allergies Allergy Verified 12/24/22 10:53 Surgical History History of prostatectomy Hx of cholecystectomy Hx of eye surgery Social History Smoking Status: Never smoker EXAM Physical Exam Const Vital Signs: 12/24/22 10:49 12/24/22 10:56 12/24/22 12:57 Temperature 97.7 F L Temperature Source Oral Pulse Rate 62 60 Respiratory Rate 18 18 Respiratory Effort Normal Non-Labored Respiratory Depth Normal Respiratory Pattern Normal Blood Pressure 147/71 H 182/104 H Blood Pressure Mean 96 130 Pulse Ox 94 96 Oxygen Delivery Method Room Air Room Air 12/24/22 14:21 12/24/22 14:35 Temperature Temperature Source Pulse Rate 75 Respiratory Rate 18 Respiratory Effort Respiratory Depth Respiratory Pattern Blood Pressure 183/87 H 183/73 H Blood Pressure Mean 119 109 Pulse Ox 97 98 Oxygen Delivery Method Room Air [facility] MDM Narrative Medical decision making narrative: HISTORY OF PRESENT ILLNESS: 82-year-old male here with concern for fall. Per EMS patient was found in another patient's room laying on his right side. There is a cut above his right eye. They note leg pain as well. The patient provide reliable history REVIEW OF SYSTEMS: Unable to obtain an adequate view of systems secondary to patient's underlying dementia and memory issues PHYSICAL EXAM: Nursing triage notes reviewed, Vital signs reviewed Constitutional: please see mdm HENT: Linear laceration over the right eyebrow, no ocular involvement, bleeding controlled Eyes: Pupils equal round and reactive to light, Extraocular muscles intact, no entrapment Neck: No stridor, no JVD, full neck ROM Lungs: Clear to auscultation, No wheezing or rales. No increased work of breathing, no conversational dyspnea, no accessory muscle use, no nasal flaring. No respiratory distress noted Heart: Regular rate and rhythm, No murmurs, No rubs and No gallops, 2+ distal pulses (radial, femoral, posterior tibial) in all extremities Abdomen: Soft, there is no tenderness, rigidity, rebound or guarding, no obvious peritoneal signs, no palpable pulsatile abdominal masses, no auscultated abdominal bruit : No CVAT Extremities: Palpable deformity to right hip, right leg is shortened neutral severe TTP with movement. Neuro: Alert, oriented to person but not place or time, moves all 4 extremities has sensation all 4 extremities Skin: No rash or lesions noted MEDICAL DECISION MAKING: Chief Complaint: Fall, head trauma External records reviewed: Prior ED records reviewed: Recent ED visit 2 days ago for aggressive behavior, ED visit last month for syncope Factors affecting care: Dementia, hypothyroidism, Social determinants of health: [facility] patient, memory care patient History obtained from others: EMS Consults: Orthopedic surgery, internal medicine MDM Narrative: Patient was hemodynamically stable, afebrile, nontoxic-appearing. Exam with laceration noted to the right eyebrow, noted deformity of right hip. I considered the following differential diagnosis: Intracranial injury, cervical spine injury, arrhythmia, anemia, electrolyte [place], dehydration, bony injury to the right hip I obtained a broad lab and imaging work-up to further elucidate the etiology of the patient's complaints. ALL IMAGES (IF OBTAINED) HAVE BEEN PERSONALLY REVIEWED AND INTERPRETED BY MYSELF. X-ray of the hip and pelvis reviewed myself shows likely right subcapital fracture. Radiologist agrees my interpretation. X-ray of the right femur shows no acute abnormalities. Chest x-ray shows no acute intrathoracic abnormalities. CBC without leukocytosis, severe anemia, no thrombocytopenia. BMP without evidence of significant electrolyte abnormalities, no anion gap, no acute kidney injury. Troponin is negative, no evidence of myocardial ischemia EKG with Normal sinus rhythm, normal axis, no STEMI Synthesis of the patient's history, physical exam, labs images are consistent with a right hip fracture, right forehead laceration and chronic hydrocephalus. Given the patient right hip fracture did consult orthopedics (Dr. Mott) who agreed to see the patient as inpatient. Also discussed case with the hospitalist (Dr. Daly) agreed to admit the patient primarily. Of note patient had intermittent bouts of aggression and behavioral issues that were treated with p.o. Zydis. We will continue to monitor. The patient and/or family, caregivers express understanding. The patient and/or family, caregivers agrees with the plan. Shared decision making: I will have a discussion with the patient and or visitors regarding risk/benefits of further testing or admission. They will be made aware of of the risk/benefits inherent in this decision they will be given the opportunity to voice understanding. Total critical care time today provided was at least 0 minutes. This excludes separately billable procedures. Critical care time (if documented) is secondary to the patient having high probability of clinically significant/life threatening deterioration in the patient's condition which required my urgent intervention. Impression: 1. Right subcapital femur fracture 2. History of dementia 3. Head laceration 4. Chronic hydrocephalus Dispo: admit Lab Data Labs: Laboratory Results - last 24 hr 12/24/22 11:45 WBC 4.9 RBC 4.82 Hgb 14.9 Hct 43.8 MCV 90.9 MCH 30.9 MCHC 34.0 RDW Std Deviation 43.1 RDW Coeff of Leonel 12.9 Plt Count 185 MPV 10.5 Immature Gran % (Auto) 0.600 Neut % (Auto) 69.6 Lymph % (Auto) 21.7 [place] % (Auto) 6.1 Eos % (Auto) 1.6 Baso % (Auto) 0.4 Absolute Neuts (auto) 3.4 Absolute Lymphs (auto) 1.07 Nucleated RBC % 0 Sodium 141 Potassium 4.0 Chloride 109 H Carbon Dioxide 30.0 Anion Gap 2 L BUN 13 Creatinine 1.04 Estim Creat Clear Calc 57.32 Est GFR (MDRD) Af Amer 88 Est GFR (MDRD) Non-Af 72 BUN/Creatinine Ratio 12.5 Glucose 110 H Calcium 8.3 L Troponin I High Sens 5 Radiography Diagnostic Testing: Clinical Impression(s) from Imaging Studies Brain CT 12/24/22 11:32 IMPRESSION: Findings suggestive of normal pressure hydrocephalus. Stable examination. Electronically Signed: Tahir Reaves MD at 13:12 EDT , Chest X-Ray 12/24/22 11:32 IMPRESSION: Stable mild pleural-parenchymal changes at the left lung base. Electronically Signed: Tahir Reaves MD at 13:23 EDT , Cervical Spine CT 12/24/22 11:33 IMPRESSION: Multilevel degenerative changes, as described above. Electronically Signed: Tahir Reaves MD at 13:16 EDT , Femur X-Ray 12/24/22 11:33 IMPRESSION: Nondisplaced subcapital fracture. Electronically Signed: Tahir Reaves MD at 13:24 EDT , Pelvis X-Ray 12/24/22 11:33 IMPRESSION: Nondisplaced right subcapital fracture. Electronically Signed: Tahir Reaves MD at 13:25 EDT , Discharge Plan Triage Chief Complaint: Fall ED Provider: Javier Cooney Dx/Rx/DC Orders Prescriptions: No Action levothyroxine 150 mcg tablet 150 mcg PO DAILY loratadine 10 mg Tablet 10 mg PO DAILY Flonase Sensimist 27.5 mcg/actuation [place],Suspension 2 spray INTRANASAL DAILY divalproex 125 mg tablet,delayed release (DR/EC) 125 mg PO QHS hydroxyzine pamoate 25 mg capsule 25 mg PO Q6H PRN (Reason: anxiety) melatonin 10 mg tablet 10 mg PO QHS hydroxyzine pamoate 25 mg capsule 25 mg PO DINNER midodrine 2.5 mg tablet 2.5 mg PO TID Primary Care Provider: Kavya Cardona Referrals: Kavya Cardona MD [Primary Care Provider] -
--- NOTE | 2022-12-24 11:32 | RAD_ITS ---
STUDY: X-RAY CHEST REASON FOR EXAM: Male, 82 years old. Fall -- -- PT FOUND ON THE GROUND IN ANOTHER PATIENTS ROOM LAYING ON RIGHT SIDE. CUT ABOVE RIGHT EYE FROM GLASSES AND WILL NOT EXTEND LEGS TECHNIQUE: Single AP portable view of the chest. COMPARISON: Comparison is made with prior study dated December 22, 2022. FINDINGS: Stable mild atelectasis and/or infiltrate at the left lung base with blunting the left costophrenic angle Normal size heart. Normal mediastinum and luis. Normal visualized pulmonary arteries. There is atherosclerotic calcification of the aortic arch with tortuosity. There are degenerative changes of the visualized thoracic spine. Normal visualized ribs, clavicles, and shoulders. There is no demonstrated abnormality of the visualized soft tissue structures of the upper abdomen. RAD/Chest 1 View (Portable) IMPRESSION: Stable mild pleural-parenchymal changes at the left lung base. Electronically Signed: Tahir Reaves MD at 13:23 EDT ,
--- NOTE | 2022-12-24 11:32 | CT_ITS ---
STUDY: CT BRAIN WITHOUT CONTRAST REASON FOR EXAM: Male, 82 years old. Fall, head trauma RADIATION DOSAGE (If Supplied By Facility): CTDIvol = ( 44.99 ) mGy, DLP = ( 829.85 ) mGycm TECHNIQUE: Transaxial CT imaging of the brain was performed without administration of intravenous contrast material. Individualized dose optimization techniques were used for this CT. COMPARISON: Comparison is made with prior study dated November 04, 2022. FINDINGS: Normal soft tissue structures. Normal calvarium. There is disproportionate enlargement of the lateral and third ventricles, as compared to the extra-axial spaces. The findings suggest normal pressure hydrocephalus (NPH). There are areas of decreased attenuation within the white matter tracts of the supratentorial brain, consistent with microvascular disease changes. 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 Normal brainstem. Normal cerebellum. There is no intracranial hemorrhage. There are no findings of an acute ischemic infarction. Mucosal thickening of the ethmoid sinuses. CT/Brain/Head without Contrast IMPRESSION: Findings suggestive of normal pressure hydrocephalus. Stable examination. Electronically Signed: Tahir Reaves MD at 13:12 EDT ,
--- NOTE | 2022-12-24 11:33 | CT_ITS ---
STUDY: CT CERVICAL SPINE WITHOUT CONTRAST REASON FOR EXAM: Male, 82 years old. Neck pain following a fall. RADIATION DOSAGE (If Supplied By Facility): CTDIvol = ( 20.92 ) mGy, DLP = ( 461.17 ) mGycm TECHNIQUE: High resolution transaxial imaging was performed without contrast material. Sagittal and coronal images were reconstructed. Individualized dose optimization techniques were used for this CT. COMPARISON: None FINDINGS: Normal craniovertebral junction. There are degenerative changes of the anterior atlantoaxial articulation. Normal odontoid process. Normal cervical lordosis. Normal vertebral bodies and posterior osseous elements. C2-3: Facet joint osteoarthritis and hypertrophy on the right side. No significant neural foraminal stenosis is seen. Minimal anterior listhesis of C2 on C3 most likely secondary to the facet joint hypertrophy. C3-4: Marked degree of disc space narrowing. Spondylosis. Uncovertebral arthrosis causing a mild to moderate degree of bilateral neural foraminal stenosis worse on the right side. C4-5: Marked degree of disc space narrowing. Spondylosis. Uncovertebral arthrosis. Bilateral neural foraminal stenosis. Right facet joint osteoarthritis and hypertrophy. C5-6: Marked degree of disc space narrowing. Spondylosis. Uncovertebral arthrosis. Bilateral neural foraminal stenosis more prominent on the right side. C6-7: Disc space narrowing and spondylosis. C7-T1: Normal endplates. Normal disc height and morphology. Normal central canal and intervertebral neuroforamina. Normal visualized soft tissue structures. CT/Spine Cervical without Contras IMPRESSION: Multilevel degenerative changes, as described above. Electronically Signed: Tahir Reaves MD at 13:16 EDT ,
--- NOTE | 2022-12-24 11:33 | RAD_ITS ---
STUDY: X-RAY - RIGHT FEMUR REASON FOR STUDY: Male, 82 years old. Leg pain -- -- PT FOUND ON THE GROUND IN ANOTHER PATIENTS ROOM LAYING ON RIGHT SIDE. CUT ABOVE RIGHT EYE FROM GLASSES AND WILL NO EXTEND LEGS TECHNIQUE: 4 view(s) of the femur. COMPARISON: None. FINDINGS: Nondisplaced subcapital fracture. Normal visualized soft tissue structure. RAD/Femur Min 2 Views IMPRESSION: Nondisplaced subcapital fracture. Electronically Signed: Tahir Reaves MD at 13:24 EDT ,
--- NOTE | 2022-12-24 11:33 | RAD_ITS ---
STUDY: X-RAY - PELVIS REASON FOR EXAM: Male, 82 years old. Right hip pain -- -- PT FOUND ON THE GROUND IN ANOTHER PATIENTS ROOM LAYING ON RIGHT SIDE. CUT ABOVE RIGHT EYE FROM GLASSES AND WILL NO EXTEND LEGS TECHNIQUE: One view of the pelvis was obtained. COMPARISON: None. FINDINGS: There is a non-specific bowel gas pattern. Normal visualized soft tissue structures. Prior lower lumbar spine surgery. There is narrowing with cortical sclerosis and osteophyte formation of the sacroiliac joint consistent with degenerative osteoarthritic changes. Normal visualized bilateral superior and inferior pubic rami. Normal pubic symphysis. Normal ischial tuberosities. Nondisplaced right subcapital fracture of the proximal femur. Normal visualized left femoral head. Normal left acetabulum. There is mild articular joint space narrowing of the left hip. RAD/Pelvis 1 or 2 Views IMPRESSION: Nondisplaced right subcapital fracture. Electronically Signed: Tahir Reaves MD at 13:25 EDT ,
[2022-12-24 11:55] LABS: Absolute Lymphocyte Count 1.07 X10^3/uL (0.83-4.51); Absolute Neutrophil Count 3.4 X10^3/uL (2.0-7.7); Basophil# 0.02 X10^3/uL; Basophil% 0.4 % (0-1); Eosinophil# 0.08 X10^3/uL; Eosinophils% 1.6 % (0-5); Hematocrit 43.8 % (40-54); Hemoglobin 14.9 g/dL (13.0-16.5); Lymphocyte # 1.07 X10^3/ul (0.83-4.51); Lymphocyte % 21.7 % (19-41); Mean Corpuscular Hgb 30.9 pg (27.0-32.0); Mean Corpuscular Volume 90.9 fL (80-94); Mean Platelet Vol. 10.5 fl (6.2-12.0); Monocyte% 6.1 % (0-10); NRBC Flagged by Analyzer 0 % (0-5); Neutrophil # 3.42 X10^3/uL (2.7-7.7); Neutrophil % 69.6 % (47-70); Platelet Count 185 K/mm3 (150-450); RBC Distribution Width CV 12.9 % (11.6-14.6); RBC Distribution Width SD 43.1 fl (35.1-43.9); Red Blood Count 4.82 M/mm3 (4.6-6.2); White Blood Count 4.9 K/mm3 (4.4-11.0)
[2022-12-24 12:16] LABS: Anion Gap 2 (5-15); BUN 13 mg/dL (7-18); BUN/Creat Ratio 12.5 RATIO (10-20); Calcium,Total 8.3 mg/dL (8.5-10.1); Chloride 109 mmol/L (98-107); Creatinine, Serum 1.04 mg/dL (0.70-1.30); EST Glomerular Filtration Rate 72 mL/min (>60); Est Glom Filt Rate - Afr Amer 88 mL/min (>60); Estimated Creatinine Clearance 57.32 ml/min; Glucose 110 mg/dL (74-106); Sodium Level 141 mmol/L (136-145); Troponin-I HS 5 pg/mL (3.0-78.0)
[2022-12-24] MEDS: 0.9% Normal Saline (500mL Bag) 500 ML 999 ML IV (12:26)
[2022-12-24] MEDS: Diphth,Pertuss(Acell),Tet Vac 0.5 ML Vial IM (12:27)
[2022-12-24] MEDS: Morphine 2 MG/ML Syringe IV ×3 (12:53→23:41)
[2022-12-24 12:57] VITALS: BP 182/104; PULSE 60; RESP 18; O2SAT 96
[2022-12-24] MEDS: OLANZapine 5 MG/TAB TAB.RAPDIS PO (13:34)
--- NOTE | 2022-12-24 13:44 | ED.RN ---
THIS RN AND SOLA RN IN TO CLEAN UP PT EYE. PT SLIGHTLY AGITATES, PT URINATED IN BED. STAFF ATTEMPTED TO CLEAN PT AND PLACE CLEAN SHEETS. PT BECOMES VERY AGITATED, PT PUNCHES THIS RN TO LEFT CHEST, PT PINCHES THIS RN IN LEFT ARM. PT YELLING AND SWEARING AT STAFF. ATTEMPT TO DE-ESCALATE PT. NOT SUCCESSFUL. PT TO BE MEDICATED
[2022-12-24 14:21] VITALS: BP 183/87; O2SAT 97
[2022-12-24 14:35] VITALS: BP 183/73; PULSE 75; RESP 18; O2SAT 98
--- NOTE | 2022-12-24 14:40 | ED.RN ---
CALLED [facility], SPOKE WITH ANUSHKA STARR ON ADMISSION OF PT
--- NOTE | 2022-12-24 14:49 | PCM.HP.STD ---
HPI - General General Date of Admission: 12/24/22 Date of Service: 12/24/22 Chief Complaint: Fall HPI Narrative AYAAN HOLLINGSWORTH, is a 82 M who presented to the emergency department at [facility] on 12/24/2022 from a local nursing facility after sustaining a fall. The patient was found laying in another patient's room on his right side. They found a cut above his right eye and leg pain was all so noted. The patient has pretty significant dementia at baseline and is unable to contribute to his history. Paperwork from the nursing facility indicate his CODE STATUS is DNR-CC. His daughter is evidently a nurse and currently in route to arrive here however ED nursing reports it will probably be another hour and a half before she is able to arrive. The laceration above his right eye was addressed by the ER physician. Vital signs on arrival show a temperature of 97.7, heart rate 62, blood pressure 147/71, respiratory is 18 and oxygen saturations were 94% on room air. CBC is a workable. Chemistry panel is overall unremarkable. Troponin was 5. EKG is mild sinus bradycardia with no ST-T wave changes concerning for acute ischemia and normal intervals. CT of the brain suggest normal pressure hydrocephalus with a stable exam compared to previous and chronic changes. Chest x-ray is unremarkable for any acute findings. CT of the cervical spine shows no acute abnormalities and multilevel degenerative changes. Right femoral and pelvic x-rays show a nondisplaced subcapital fracture of the right femur. Case was discussed with the on-call orthopedic surgeon and they will see the patient in house after admitted for palliative fixation of his right hip. [facility] Medical History Dementia History of prostate cancer [place] (hard of hearing) Home Medications fluticasone furoate 27.5 mcg/actuation nasal spray,suspension (Flonase Sensimist) 2 spray intranasal DAILY allergies 12/09/21 [History Last Taken 12/24/22] levothyroxine 150 mcg tablet 150 mcg PO DAILY thyroid 12/09/21 [History Last Taken 12/24/22] loratadine 10 mg tablet 10 mg PO DAILY allergies 12/09/21 [History Last Taken 12/24/22] divalproex 125 mg tablet,delayed release 125 mg PO QHS seizures 09/25/22 [History Last Taken 12/23/22] hydroxyzine pamoate 25 mg capsule 25 mg PO Q6H PRN anxiety 09/25/22 [History Last Taken Unknown] melatonin 10 mg tablet 10 mg PO QHS insomnia 09/25/22 [History Last Taken 12/23/22] hydroxyzine pamoate 25 mg capsule 25 mg PO DINNER anxiety 12/24/22 [History Last Taken 12/23/22] midodrine 2.5 mg tablet 2.5 mg PO TID blood pressure 12/24/22 [History Last Taken 12/24/22] Allergy/AdvReac Type Severity Reaction Status Date / Time No Known Allergies Allergy Verified 12/24/22 10:53 unable to obtain Surgical History History of prostatectomy Hx of cholecystectomy Hx of eye surgery Social History (Updated 12/24/22 @ 15:[address] Lenore Daly DO) housing: [facility] Smoking Status: Never smoker details: Unknown as patient is not able to participate in exam substance use type: does not use ROS ROS Narrative Patient with severe dementia and unable to give me any meaningful review of systems Review of Systems ROS Unobtainable: due to mental condition and due to mental status Vital Signs Vital Signs Vital Signs: 12/24/22 10:49 12/24/22 10:56 12/24/22 12:57 Temperature 97.7 F L Temperature Source Oral Pulse Rate 62 60 Respiratory Rate 18 18 Respiratory Effort Normal Non-Labored Respiratory Depth Normal Respiratory Pattern Normal Blood Pressure 147/71 H 182/104 H Blood Pressure Mean 96 130 Pulse Ox 94 96 Oxygen Delivery Method Room Air Room Air 12/24/22 14:21 12/24/22 14:35 Temperature Temperature Source Pulse Rate 75 Respiratory Rate 18 Respiratory Effort Respiratory Depth Respiratory Pattern Blood Pressure 183/87 H 183/73 H Blood Pressure Mean 119 109 Pulse Ox 97 98 Oxygen Delivery Method Room Air Weight Weight: 84.3 kg Body Mass Index (BMI) 25.9 Physical Exam Const alert, no apparent distress, average body habitus and well nourished; Negative for oriented x3 or healthy appearing Constitutional Narrative: Elderly white male lying in bed, fidgeting, unable to consistently follow commands, oriented only to self General Appearance: uncooperative HEENT normocephalic and head/scalp atraumatic HEENT Narrative: Appears to have moderate hearing loss, dentition is poor, mucous membranes are moist Eyes PERRL, EOMs intact bilaterally and conjunctivae normal Eyes Narrative: No scleral icterus Neck no lymphadenopathy and supple Neck Narrative: Trachea midline, no thyroid enlargement Resp normal respiratory effort, no retractions, no use of accessory muscles and clear to auscultation bilaterally Resp Narrative: Exam limited due to lack of cooperation however no significant abnormalities noted on auscultation Auscultation: Negative for rales, rhonchi or wheezes Cardio regular rhythm, S1 normal heart sound, S2 normal heart sound, no murmurs, no rub, no gallops and no clicks Cardio Narrative: Mild sinus bradycardia GI normal to inspection, nondistended, normoactive bowel sounds, soft to palpation and non-tender Extremity no clubbing, cyanosis or edema Extremity Narrative: Right lower extremity shortened and externally rotated Skin Skin Narrative: Scattered ecchymosis, laceration over right eye closed and bandaged with no significant drainage at this time Neuro No oriented x3 Neuro Narrative: Moves upper extremities symmetrically, moves lower extremity on the left without any difficulty, limited movement right lower extremity due to pain, patient speech is intermittently garbled with moments of clarity Sensorium / Orientation: awake, alert and oriented to person; Negative for oriented to place or oriented to time Psych Psych Narrative: Agitated and confused Results Lab / Micro Data 12/24/22 11:45 12/24/22 11:45 Labs: Laboratory Results - last 24 hr 12/24/22 11:45: WBC 4.9, RBC 4.82, Hgb 14.9, Hct 43.8, MCV 90.9, MCH 30.9, MCHC 34.0, RDW Std Deviation 43.1, RDW Coeff of Leonel 12.9, Plt Count 185, MPV 10.5, Immature Gran % (Auto) 0.600, Neut % (Auto) 69.6, Lymph % (Auto) 21.7, [place] % (Auto) 6.1, Eos % (Auto) 1.6, Baso % (Auto) 0.4, Absolute Neuts (auto) 3.4, Absolute Lymphs (auto) 1.07, Nucleated RBC % 0, Sodium 141, Potassium 4.0, Chloride 109 H, Carbon Dioxide 30.0, Anion Gap 2 L, BUN 13, Creatinine 1.04, Estim Creat Clear Calc 57.32, Est GFR (MDRD) Af Amer 88, Est GFR (MDRD) Non-Af 72, BUN/Creatinine Ratio 12.5, Glucose 110 H, Calcium 8.3 L, Troponin I High Sens [address] 12/24/22 11:32 IMPRESSION: Findings suggestive of normal pressure hydrocephalus. Stable examination. Electronically Signed: Tahir Reaves MD at 13:12 EDT , Chest X-Ray 12/24/22 11:32 IMPRESSION: Stable mild pleural-parenchymal changes at the left lung base. Electronically Signed: Tahir Reaves MD at 13:23 EDT , Cervical Spine CT 12/24/22 11:33 IMPRESSION: Multilevel degenerative changes, as described above. Electronically Signed: Tahir Reaves MD at 13:16 EDT , Femur X-Ray 12/24/22 11:33 IMPRESSION: Nondisplaced subcapital fracture. Electronically Signed: Tahir Reaves MD at 13:24 EDT , Pelvis X-Ray 12/24/22 11:33 IMPRESSION: Nondisplaced right subcapital fracture. Electronically Signed: Tahir Reaves MD at 13:25 EDT , Assessment & Plan Assessment/Plan (1) Subcapital fracture of hip: (2) Fall: PLAN: Plan Subcapital fracture of the right hip status post fall -Clear if this was a mechanical fall or otherwise as it was unwitnessed and patient was found on the floor and another patient's room -We will likely need palliative surgery to help with pain control -Orthopedic surgery consult -N.p.o. after midnight -Start IV fluids with LR at 70 cc/h at 10 PM -Scheduled Tylenol 1 g every 8 -As needed oxycodone -As needed morphine -Scheduled senna -PT/OT consultations after surgery -Significant abnormalities noted on chest x-ray or EKG Normal pressure hydrocephalus -CT of the brain suggestive of normal pressure hydrocephalus -CODE STATUS on arrival from facility is DNR CC and I suspect family will not want to proceed with any intervention for this but will need to discuss further once daughter arrives -She is currently driving in from out of town Dementia with behavioral disturbances -Continue home Depakote -Continue home nocturnal hydroxyzine but hold as needed every 6 hours hydroxyzine as this could make falling more problematic with its anticholinergic properties -We will give Risperdal 0.25 mg at 8 AM and 1 mg nightly to help with behavioral aspects of his dementia History of prostate cancer -No current issues History of hypothyroidism -Continue home levothyroxine Allergies -Continue home loratadine -Continue home nasal spray Insomnia -Continue home melatonin Chronic hypotension -Continue home midodrine 2.5 mg 3 times daily DVT prophylaxis -SCDs for now -Start enoxaparin tomorrow evening 40 mg daily subcu -Discontinue SCDs once enoxaparin is initiated CODE STATUS -Documentation from nursing facility indicates CODE STATUS is DNR CC Charges/Coding Visit Charges Inpatient E&M: 16007 Init Hosp L2
--- NOTE | 2022-12-24 15:25 | ED.RN ---
PT RIPPED OUT IV, TOOK OFF GOWN AND BRIEF. THROWING BLANKETS AT COMPUTER. ATTEMPTING TO TAKE OFF ATTENDS. NUMEROUS ATTEMPTS TO REDIRECT. DR. WOODARD NOTIFIED.
[2022-12-24] MEDS: Ziprasidone IM 20 MG/ML VIAL IM (15:29)
--- NOTE | 2022-12-24 15:49 | CON.PCM.OR_ITS ---
HPI Consult Data Date of Consult: 12/24/22 HPI Narrative HPI Narrative: AYAAN HOLLINGSWORTH, is a 82 M who presents with a ground-level fall. Right hip fracture noted on x-rays. Patient is in the long-term memory unit advanced dementia with aggressive behavior. History from the emergency department only. [facility] Medical History Dementia History of prostate cancer [place] (hard of hearing) Home Medications fluticasone furoate 27.5 mcg/actuation nasal spray,suspension (Flonase Sensimist) 2 spray intranasal DAILY allergies 12/09/21 [History Last Taken 12/24/22] levothyroxine 150 mcg tablet 150 mcg PO DAILY thyroid 12/09/21 [History Last Taken 12/24/22] loratadine 10 mg tablet 10 mg PO DAILY allergies 12/09/21 [History Last Taken 12/24/22] divalproex 125 mg tablet,delayed release 125 mg PO QHS seizures 09/25/22 [History Last Taken 12/23/22] hydroxyzine pamoate 25 mg capsule 25 mg PO Q6H PRN anxiety 09/25/22 [History Last Taken Unknown] melatonin 10 mg tablet 10 mg PO QHS insomnia 09/25/22 [History Last Taken 12/23/22] hydroxyzine pamoate 25 mg capsule 25 mg PO DINNER anxiety 12/24/22 [History Last Taken 12/23/22] midodrine 2.5 mg tablet 2.5 mg PO TID blood pressure 12/24/22 [History Last Taken 12/24/22] Allergy/AdvReac Type Severity Reaction Status Date / Time No Known Allergies Allergy Verified 12/24/22 10:53 Family History unable to obtain Surgical History History of prostatectomy Hx of cholecystectomy Hx of eye surgery Social History (Updated 12/24/22 @ 15:[address] Lenore Daly DO) housing: group home Smoking Status: Never smoker details: Unknown as patient is not able to participate in exam substance use type: does not use Vital Signs Vital Signs Vital Signs: 12/24/22 10:49 12/24/22 10:56 12/24/22 12:57 Temperature 97.7 F L Temperature Source Oral Pulse Rate 62 60 Respiratory Rate 18 18 Respiratory Effort Normal Non-Labored Respiratory Depth Normal Respiratory Pattern Normal Blood Pressure 147/71 H 182/104 H Blood Pressure Mean 96 130 Pulse Ox 94 96 Oxygen Delivery Method Room Air Room Air 12/24/22 14:21 12/24/22 14:35 Temperature Temperature Source Pulse Rate 75 Respiratory Rate 18 Respiratory Effort Respiratory Depth Respiratory Pattern Blood Pressure 183/87 H 183/73 H Blood Pressure Mean 119 109 Pulse Ox 97 98 Oxygen Delivery Method Room Air Weight Weight: 185 lb 13.595 oz Body Mass Index (BMI) 25.9 Physical Exam Const alert; Negative for oriented x3 or well nourished General Appearance: Negative for cooperative Extremity normal capillary refill, no clubbing, cyanosis or edema, no calf tenderness and no pedal edema Extremity Narrative: Closed right hip injury. The patient is unable to localize the pain. Able to wiggle the toes dorsiflex and plantarflex the foot the foot is warm and well- perfused. Lab / Micro Data 12/24/22 11:45 12/24/22 11:45 Labs: Laboratory Results - last 24 hr 12/24/22 11:45: WBC 4.9, RBC 4.82, Hgb 14.9, Hct 43.8, MCV 90.9, MCH 30.9, MCHC 34.0, RDW Std Deviation 43.1, RDW Coeff of Leonel 12.9, Plt Count 185, MPV 10.5, Immature Gran % (Auto) 0.600, Neut % (Auto) 69.6, Lymph % (Auto) 21.7, [place] % (Auto) 6.1, Eos % (Auto) 1.6, Baso % (Auto) 0.4, Absolute Neuts (auto) 3.4, Absolute Lymphs (auto) 1.07, Nucleated RBC % 0, Sodium 141, Potassium 4.0, Chloride 109 H, Carbon Dioxide 30.0, Anion Gap 2 L, BUN 13, Creatinine 1.04, Estim Creat Clear Calc 57.32, Est GFR (MDRD) Af Amer 88, Est GFR (MDRD) Non-Af 72, BUN/Creatinine Ratio 12.5, Glucose 110 H, Calcium 8.3 L, Troponin I High Sens [address] 12/24/22 11:32 IMPRESSION: Findings suggestive of normal pressure hydrocephalus. Stable examination. Electronically Signed: Tahir Reaves MD at 13:12 EDT , Chest X-Ray 12/24/22 11:32 IMPRESSION: Stable mild pleural-parenchymal changes at the left lung base. Electronically Signed: Tahir Reaves MD at 13:23 EDT , Cervical Spine CT 12/24/22 11:33 IMPRESSION: Multilevel degenerative changes, as described above. Electronically Signed: Tahir Reaves MD at 13:16 EDT , Femur X-Ray 12/24/22 11:33 IMPRESSION: Nondisplaced subcapital fracture. Electronically Signed: Tahir Reaves MD at 13:24 EDT , Pelvis X-Ray 12/24/22 11:33 IMPRESSION: Nondisplaced right subcapital fracture. Electronically Signed: Tahir Reaves MD at 13:25 EDT , I agree with radiologist assessment femoral neck fracture valgus impacted [place] type I nondisplaced. Assessment & Plan Assessment/Plan (1) Subcapital fracture of hip: PLAN: 82-year-old man with advanced dementia right hip valgus impacted femoral neck fracture. Discussed with his healthcare proxy Adams Shah his daughter pros and cons risk and benefits of nonoperative treatment higher rate of subsequent displacement not healing and pain versus open reduction internal f ixation typically with cannulated screws or other means of fixation. Overall my recommendation would be surgery in this case however both courses of action to have their own set of risks. Adams did agree to go ahead with right hip open reduction internal fixation with cannulated screws. The patient will be admitted under the hospitalist service I talked anesthesia and the OR nursing team we will proceed with the case tomorrow morning. In the meantime the patient is placed on bedrest and n.p.o. at midnight. I did a 2 person verbal consent and the daughter is heading into the hospital this evening, will see her tomorrow AM. Pros and cons risks and benefits were discussed with the patient including but not limited to infection, pain, stiffness, bleeding, damage to surrounding structures, neurovascular injury, recurrence or retear, failure or wear of hardware or fixation, instability, fracture, deep vein thrombosis and pulmonary embolism, anesthetic risks, , patient dissatisfaction, need for further surgery and other risks. Patient understood and wished to proceed with surgery, and signed the informed consent documentation.
[2022-12-24 16:30] VITALS: BP 153/70; PULSE 76; RESP 18; TEMP 36.6; O2SAT 99
[2022-12-24 16:33] VITALS: BMI 25.9
[2022-12-24] MEDS: RisperiDONE 1 MG Tablet PO (18:14)
[2022-12-24] MEDS: hydrOXYzine PAM 25 MG Capsule PO (18:15)
[2022-12-24] MEDS: Lactated Ringers 1,000 ML 70 ML IV (20:40)
[2022-12-24] MEDS: Acetaminophen 500 MG Tablet 1000 MG PO (22:38)
[2022-12-24] MEDS: Divalproex Sodium 125 MG Tablet PO (22:39)
[2022-12-24] MEDS: MELATONIN 10 MG TABLET PO (22:39)
[2022-12-24] MEDS: Senna/Docusate Sodium 1 Tablet 2 TABLET PO (22:39)
[2022-12-24] MEDS: 0.9% Saline Lock 10 ML Syringe IV (22:40)
[2022-12-24 23:03] VITALS: BP 132/64; PULSE 88; RESP 18; TEMP 37.9; O2SAT 93
[2022-12-25] VITALS (10 sets, daily range): BP systolic 130–164; BP diastolic 54–86; PULSE 67–83; RESP 12–18; TEMP 36.5–37.2; O2SAT 89–98; BMI 19.3
[2022-12-25 03:59] LABS: Absolute Lymphocyte Count 0.95 X10^3/uL (0.83-4.51); Absolute Neutrophil Count 7.5 X10^3/uL (2.0-7.7); Basophil# 0.02 X10^3/uL; Basophil% 0.2 % (0-1); Eosinophil# 0.02 X10^3/uL; Eosinophils% 0.2 % (0-5); Hematocrit 40.4 % (40-54); Hemoglobin 13.7 g/dL (13.0-16.5); Lymphocyte # 0.95 X10^3/ul (0.83-4.51); Lymphocyte % 10.4 % (19-41); Mean Corp Hgb Conc 33.9 g/dL (32-36); Mean Corpuscular Hgb 30.7 pg (27.0-32.0); Mean Corpuscular Volume 90.6 fL (80-94); Mean Platelet Vol. 10.4 fl (6.2-12.0); Monocyte# 0.61 X10^3/uL; Monocyte% 6.7 % (0-10); NRBC Flagged by Analyzer 0 % (0-5); Neutrophil # 7.53 X10^3/uL (2.7-7.7); Neutrophil % 82.3 % (47-70); Platelet Count 176 K/mm3 (150-450); RBC Distribution Width CV 12.8 % (11.6-14.6); RBC Distribution Width SD 42.5 fl (35.1-43.9); Red Blood Count 4.46 M/mm3 (4.6-6.2); White Blood Count 9.2 K/mm3 (4.4-11.0)
[2022-12-25 04:17] LABS: ALB/GLOB Ratio 0.8 RATIO (0.9-2.4); AST(SGOT) 13 U/L (15-37); Alanine Aminotransfer ALT/SGPT 19 U/L (16-61); Albumin, Serum 2.7 g/dL (3.2-5.0); Alkaline Phosphatase 74 U/L (45-117); Anion Gap 3 (5-15); BUN 14 mg/dL (7-18); BUN/Creat Ratio 13.7 RATIO (10-20); Calcium,Total 7.9 mg/dL (8.5-10.1); Chloride 110 mmol/L (98-107); Creatinine, Serum 1.02 mg/dL (0.70-1.30); EST Glomerular Filtration Rate 74 mL/min (>60); Est Glom Filt Rate - Afr Amer 90 mL/min (>60); Estimated Creatinine Clearance 62.56 ml/min; Globulin 3.5 g/dL (2.2-4.2); Glucose 149 mg/dL (74-106); Magnesium 1.8 mg/dL (1.6-2.6); Potassium 3.8 mmol/L (3.5-5.1); Protein, Total 6.2 g/dL (6.4-8.2); Sodium Level 140 mmol/L (136-145)
[2022-12-25] MEDS: Lactated Ringers 1,000 ML 15 ML IV (07:03)
--- NOTE | 2022-12-25 07:12 | HP.PCM_ITS ---
HPI - General General Date of Admission: 12/24/22 Chief Complaint: Fall HPI Narrative AYAAN HOLLINGSWORTH, is a 82 M who presents for R hip ORIF (cannulated screws). No ch anges to h and p. Spoke to the patients second daughter who is health care proxy, updated her on RAB pros and cons of going ahead. The proxy is a nurse. She understands, no further questions. Right hip marked. Dr. Dupont for anesthesia. OK to proceed. MR#: [id number] Acct: [id number] Name: AYAAN HOLLINGSWORTH Rep #: [id number] : 1940 82 From: Harjit Mcfarlane MD PCP: Dr. Kavya Cardona MD Status: ADM IN [facility]: [facility] HPI Consult Data Date of Consult: 12/24/22 HPI Narrative HPI Narrative: AYAAN HOLLINGSWORTH is a 82 M who presents with a ground-level fall. Right hip fracture noted on x-rays. Patient is in the long-term memory unit advanced dementia with aggressive behavior. History from the emergency department only. [facility] Medical History Dementia History of prostate cancer [place] (hard of hearing) Home Medications fluticasone furoate 27.5 mcg/actuation nasal spray,suspension (Flonase Sensimist) 2 spray intranasal DAILY allergies 12/09/21 [History Last Taken 12/24/22] levothyroxine 150 mcg tablet 150 mcg PO DAILY thyroid 12/09/21 [History Last Taken 12/24/22] loratadine 10 mg tablet 10 mg PO DAILY allergies 12/09/21 [History Last Taken 12/24/22] divalproex 125 mg tablet,delayed release 125 mg PO QHS seizures 09/25/22 [History Last Taken 12/23/22] hydroxyzine pamoate 25 mg capsule 25 mg PO Q6H PRN anxiety 09/25/22 [History Last Taken Unknown] melatonin 10 mg tablet 10 mg PO QHS insomnia 09/25/22 [History Last Taken 12/23/22] hydroxyzine pamoate 25 mg capsule 25 mg PO DINNER anxiety 12/24/22 [History Last Taken 12/23/22] midodrine 2.5 mg tablet 2.5 mg PO TID blood pressure 12/24/22 [History Last Taken 12/24/22] Allergy/AdvReac Type Severity Reaction Status Date / Time No Known Allergies Allergy Verified 12/24/22 10:53 Family History unable to obtain Surgical History History of prostatectomy Hx of cholecystectomy Hx of eye surgery Social History (Updated 12/24/22 @ 15:[address] Lenore Daly DO) housing: snf Smoking Status: Never smoker details: Unknown as patient is not able to participate in exam substance use type: does not use Vital Signs Vital Signs Vital Signs: 12/24/2309:49 12/24/2309:56 12/25/2311:57 Temperature 97.7 F L Temperature Source Oral Pulse Rate 62 60 Respiratory Rate 18 18 Respiratory Effort Normal Non-Labored Respiratory Depth Normal Respiratory Pattern Normal Blood Pressure 147/71 H 182/104 H Blood Pressure Mean 96 130 Pulse Ox 94 96 Oxygen Delivery Method Room Air Room Air 12/24/2313:21 12/24/2313:35 Temperature Temperature Source Pulse Rate 75 Respiratory Rate 18 Respiratory Effort Respiratory Depth Respiratory Pattern Blood Pressure 183/87 H 183/73 H Blood Pressure Mean 119 109 Pulse Ox 97 98 Oxygen Delivery Method Room Air Weight Weight: 185 lb 13.595 oz Body Mass Index (BMI) 25.9 Physical Exam Const alert; Negative for oriented x3 or well nourished General Appearance: Negative for cooperative Extremity normal capillary refill, no clubbing, cyanosis or edema, no calf tenderness and no pedal edema Extremity Narrative: Closed right hip injury. The patient is unable to localize the pain. Able to wiggle the toes dorsiflex and plantarflex the foot the foot is warm and well- perfused. Lab / Micro Data 12/24/22 11:45 12/24/22 11:45 Labs: Laboratory Results - last 24 hr 12/24/22 11:45: WBC 4.9, RBC 4.82, Hgb 14.9, Hct 43.8, MCV 90.9, MCH 30.9, MCHC 34.0, RDW Std Deviation 43.1, RDW Coeff of Leonel 12.9, Plt Count 185, MPV 10.5, Immature Gran % (Auto) 0.600, Neut % (Auto) 69.6, Lymph % (Auto) 21.7, Parke % (Auto) 6.1, Eos % (Auto) 1.6, Baso % (Auto) 0.4, Absolute Neuts (auto) 3.4, Absolute Lymphs (auto) 1.07, Nucleated RBC % 0, Sodium 141, Potassium 4.0, Chloride 109 H, Carbon Dioxide 30.0, Anion Gap 2 L, BUN 13, Creatinine 1.04, Estim Creat Clear Calc 57.32, Est GFR (MDRD) Af Amer 88, Est GFR (MDRD) Non-Af 72, BUN/Creatinine Ratio 12.5, Glucose 110 H, Calcium 8.3 L, Troponin I High Sens [address] 12/24/22 11:32 IMPRESSION: Findings suggestive of normal pressure hydrocephalus. Stable examination. Electronically Signed: Tahir Reaves MD at 13:12 EDT Reading Location ID and State: [facility] / [place] , Service support , Chest X-Ray 12/24/22 11:32 IMPRESSION: Stable mild pleural-parenchymal changes at the left lung base. Electronically Signed: Tahir Reaves MD at 13:23 EDT , Cervical Spine CT 12/24/22 11:33 IMPRESSION: Multilevel degenerative changes, as described above. Electronically Signed: Tahir Reaves MD at 13:16 EDT , Femur X-Ray 12/24/22 11:33 IMPRESSION: Nondisplaced subcapital fracture. Electronically Signed: Tahir Reaves MD at 13:24 EDT , Pelvis X-Ray 12/24/22 11:33 IMPRESSION: Nondisplaced right subcapital fracture. Electronically Signed: Tahir Reaves MD at 13:25 EDT , I agree with radiologist assessment femoral neck fracture valgus impacted Garden type I nondisplaced. Assessment & Plan Assessment/Plan (1) Subcapital fracture of hip: PLAN: 82-year-old man with advanced dementia right hip valgus impacted femoral neck fracture. Discussed with his healthcare proxy Adams Shah his daughter pros and cons risk and benefits of nonoperative treatment higher rate of subsequent displacement not healing and pain versus open reduction internal fixation typically with cannulated screws or other means of fixation. Overall my recommendation would be surgery in this case however both courses of action to have their own set of risks. Adams did agree to go ahead with right hip open reduction internal fixation with cannulated screws. The patient will be admitted under the hospitalist service I talked anesthesia and the OR nursing team we will proceed with the case tomorrow morning. In the meantime the patient is placed on bedrest and n.p.o. at midnight. I did a 2 person verbal consent and the daughter is heading into the hospital this evening, will see her tomorrow AM. Pros and cons risks and benefits were discussed with the patient including but not limited to infection, pain, stiffness, bleeding, damage to surrounding structures, neurovascular injury, recurrence or retear, failure or wear of hardware or fixation, instability, fracture, deep vein thrombosis and pulmonary embolism, anesthetic risks, , patient dissatisfaction, need for further surgery and other risks. Patient understood and wished to proceed with surgery, and signed the informed consent documentation. [facility] Medical History Dementia History of prostate cancer [place] (hard of hearing) Home Medications fluticasone furoate 27.5 mcg/actuation nasal spray,suspension (Flonase Se nsimist) 2 spray intranasal DAILY allergies 12/09/21 [History Last Taken 12/24/22] levothyroxine 150 mcg tablet 150 mcg PO DAILY thyroid 12/09/21 [History Last Taken 12/24/22] loratadine 10 mg tablet 10 mg PO DAILY allergies 12/09/21 [History Last Taken 12/24/22] divalproex 125 mg tablet,delayed release 125 mg PO QHS seizures 09/25/22 [History Last Taken 12/23/22] hydroxyzine pamoate 25 mg capsule 25 mg PO Q6H PRN anxiety 09/25/22 [History Last Taken Unknown] melatonin 10 mg tablet 10 mg PO QHS insomnia 09/25/22 [History Last Taken 12/23/22] hydroxyzine pamoate 25 mg capsule 25 mg PO DINNER anxiety 12/24/22 [History Last Taken 12/23/22] midodrine 2.5 mg tablet 2.5 mg PO TID blood pressure 12/24/22 [History Last Taken 12/24/22] Allergy/AdvReac Type Severity Reaction Status Date / Time No Known Allergies Allergy Verified 12/24/22 10:53 Family History unable to obtain Surgical History History of prostatectomy Hx of cholecystectomy Hx of eye surgery Social History (Updated 12/24/22 @ 15:[address] Lenore Daly DO) housing: snf Smoking Status: Never smoker details: Unknown as patient is not able to participate in exam substance use type: does not use Vital Signs Vital Signs Vital Signs: 12/24/22 10:49 12/24/22 10:56 12/24/22 12:57 Temperature 97.7 F L Temperature Source Oral Pulse Rate 62 60 Respiratory Rate 18 18 Respiratory Effort Normal Non-Labored Respiratory Depth Normal Respiratory Pattern Normal Blood Pressure 147/71 H 182/104 H Blood Pressure [BP] Blood Pressure Mean 96 130 Blood Pressure Mean [BP] Blood Pressure Source Blood Pressure Source [BP] Blood Pressure Position Blood Pressure Location Pulse Ox 94 96 Oxygen Delivery Method Room Air Room Air 12/24/22 14:21 12/24/22 14:35 12/24/22 16:33 Temperature Temperature Source Pulse Rate 75 Respiratory Rate 18 Respiratory Effort Normal Non-Labored Respiratory Depth Normal Respiratory Pattern Normal Blood Pressure 183/87 H 183/73 H Blood Pressure [BP] Blood Pressure Mean 119 109 Blood Pressure Mean [BP] Blood Pressure Source Blood Pressure Source [BP] Blood Pressure Position Blood Pressure Location Pulse Ox 97 98 Oxygen Delivery Method Room Air Room Air 12/24/22 16:30 12/24/22 20:11 12/24/22 23:03 Temperature 97.9 F 100.2 F H Temperature Source Temporal Temporal Pulse Rate 76 88 Respiratory Rate 18 18 Respiratory Effort Normal Non-Labored Respiratory Depth Normal Respiratory Pattern Normal Blood Pressure 132/64 H Blood Pressure [BP] 153/70 H Blood Pressure Mean 86 Blood Pressure Mean [BP] 97 Blood Pressure Source Monitor Blood Pressure Source [BP] Monitor Blood Pressure Position Semi-Fowlers Blood Pressure Location Right Arm Pulse Ox 99 93 Oxygen Delivery Method Room Air Room Air Room Air 12/25/22 05:11 Temperature 98.6 F Temperature Source Temporal Pulse Rate 75 Respiratory Rate 18 Respiratory Effort Respiratory Depth Respiratory Pattern Blood Pressure 148/54 H Blood Pressure [BP] Blood Pressure Mean 85 Blood Pressure Mean [BP] Blood Pressure Source Monitor Blood Pressure Source [BP] Blood Pressure Position Semi-Fowlers Blood Pressure Location Right Arm Pulse Ox 94 Oxygen Delivery Method Room Air Weight Weight: 177 lb 11.081 oz Body Mass Index (BMI) 19.3 Results Lab / Micro Data 12/25/22 03:45 12/25/22 03:45 Labs: Laboratory Results - last 24 hr 12/24/22 11:45: WBC 4.9, RBC 4.82, Hgb 14.9, Hct 43.8, MCV 90.9, MCH 30.9, MCHC 34.0, RDW Std Deviation 43.1, RDW Coeff of Leonel 12.9, Plt Count 185, MPV 10.5, Immature Gran % (Auto) 0.600, Neut % (Auto) 69.6, Lymph % (Auto) 21.7, Parke % (Auto) 6.1, Eos % (Auto) 1.6, Baso % (Auto) 0.4, Absolute Neuts (auto) 3.4, Absolute Lymphs (auto) 1.07, Nucleated RBC % 0, Sodium 141, Potassium 4.0, Chloride 109 H, Carbon Dioxide 30.0, Anion Gap 2 L, BUN 13, Creatinine 1.04, Estim Creat Clear Calc 57.32, Est GFR (MDRD) Af Amer 88, Est GFR (MDRD) Non-Af 72, BUN/Creatinine Ratio 12.5, Glucose 110 H, Calcium 8.3 L, Troponin I High Sens 5 12/25/22 03:45: WBC 9.2, RBC 4.46 L, Hgb 13.7, Hct 40.4, MCV 90.6, MCH 30.7, MCHC 33.9, RDW Std Deviation 42.5, RDW Coeff of Leonel 12.8, Plt Count 176, MPV 10.4, Immature Gran % (Auto) 0.200, Neut % (Auto) 82.3 H, Lymph % (Auto) 10.4 L, Parke % (Auto) 6.7, Eos % (Auto) 0.2, Baso % (Auto) 0.2, Absolute Neuts (auto) 7.5, Absolute Lymphs (auto) 0.95, Nucleated RBC % 0, Sodium 140, Potassium 3.8, Chloride 110 H, Carbon Dioxide 27.0, Anion Gap 3 L, BUN 14, Creatinine 1.02, Estim Creat Clear Calc 62.56, Est GFR (MDRD) Af Amer 90, Est GFR (MDRD) Non-Af 74, BUN/Creatinine Ratio 13.7, Glucose 149 H, Calcium 7.9 L, Phosphorus 3.0, Magnesium 1.8, Total Bilirubin 0.50, AST 13 L, ALT 19, Alkaline Phosphatase 74, Total Protein 6.2 L, Albumin 2.7 L, Globulin 3.5, Albumin/Globulin Ratio 0.8 L, Blood Type A POSITIVE, Antibody Screen NEGATIVE Radiology Impression Brain CT 12/24/22 11:32 IMPRESSION: Findings suggestive of normal pressure hydrocephalus. Stable examination. Electronically Signed: Tahir Reaves MD at 13:12 EDT , Chest X-Ray 12/24/22 11:32 IMPRESSION: Stable mild pleural-parenchymal changes at the left lung base. Electronically Signed: Tahir Reaves MD at 13:23 EDT , Cervical Spine CT 12/24/22 11:33 IMPRESSION: Multilevel degenerative changes, as described above. Electronically Signed: Tahir Reaves MD at 13:16 EDT , Femur X-Ray 12/24/22 11:33 IMPRESSION: Nondisplaced subcapital fracture. Electronically Signed: Tahir Reaves MD at 13:24 EDT , Pelvis X-Ray 12/24/22 11:33
--- NOTE | 2022-12-25 07:20 | RAD_ITS ---
STUDY: X-RAY - PELVIS AND RIGHT HIP REASON FOR EXAM: Male, 82 years old. Pinning, hip insertion cannulated screws TECHNIQUE: 1 views of the pelvis and hip. COMPARISON: None. FINDINGS: Intraoperative fluoroscopic services provided for right hip pinning with cannulated screws. RAD/Hip 1 view with Pelvis IMPRESSION: Intraoperative fluoroscopic services provided for right hip pinning with cannulated screws. Electronically Signed: Tahir Reaves MD at 9:08 EDT ,
[2022-12-25] MEDS: Cefazolin 2 GM in 0.9% Normal Saline (100mL Bag) 100 ML IV (07:28)
[2022-12-25] MEDS: Bupivacaine 0.25% 30 ML Vial (08:25)
--- NOTE | 2022-12-25 08:35 | PCM.OPRPT ---
Problems Associated Problem List Diagnoses (1) Subcapital fracture of hip: Report of Operation Date of Procedure: 12/25/22 Pre-Operative Diagnosis: right femoral neck fracture Post-Operative Diagnosis: same Surgery/Procedure Performed:: R hip cannulated screws Surgeon: Harjit Mcfarlane Type of Anesthesia: General and Local Anesthesiologist: Brendan Dupont Estimated Blood Loss (mL): 35 Description of Procedure: Patient brought to the operating room theater. Placed supine on the fracture table. Right leg in the traction toney no traction and slight internal rotation. Left leg scissoring position attached to the bed appropriately padded peroneal nerve. SCDs on the legs. General anesthesia induced. 2 g IV Ancef administered prior to the start of the case. Right lower extremity prepped and draped with chlorhexidine based prep solution allowing over 3 minutes drying time prior to draping. Shower curtain style drape used Ioban dressing. Preoperative timeout performed to confirm the site patient and the surgery. Began by using a percutaneous technique to insert 3 guidewires in an inverted triangle configuration inferior most guidewire along the inferior calcar and slightly posterior and advanced to the subchondral bone of the femoral head. Took xrays throughout, saved onto the system. This was a valgus impacted femoral neck fracture it had very slightly displaced posteriorly but was acceptable for the alignment in order to perform the fixation as planned. I measured these to be 90 mm and 95 mm long screws short thread partially-threaded 7.3 mm cannulated Synthes screws. Overdrilled the cortex then advanced the screws with washers for each of the 3 screws. Guidewires removed and near far technique done with live fluoroscopy to ensure no subchondral bone penetration and appropriate placement of the screws. Case terminated wounds thoroughly irrigated. Skin closed with 3-0 Monocryl suture. Skin cleaned with wet and dry dressing 10 cc of quarter percent bupivacaine instilled in around the soft tissues. Steri-Strips followed by gauze and tape dressing was then placed. Patient woken up from the general operating table taken to postanesthetic care unit in stable condition. All sponge needle instrument counts were correct. cpt 31905 Admit VTE Documentation VTE Present on Admission: No VTE Mechan Device Prophylaxis: SCD's VTE Pharm Prophylaxis ordered?: Yes Procedures Musculoskeletal [id number]: Other Procedure See Report
[2022-12-25] MEDS: TXA 1000mg in NS100 100ml (IVPB at Incision) 660 MG IV (08:53)
--- NOTE | 2022-12-25 09:23 | PN.HOSP_ITS ---
Subjective Subjective Severe dementia Objective Data Objective Data Vital Signs: Vital Signs Temp Pulse Resp BP Pulse Ox O2 Del Method O2 Flow Rate 98.7 F 67 14 156/70 H 94 Room Air 2 12/25/22 09:03 12/25/22 09:03 12/25/22 09:03 12/25/22 09:03 12/25/22 09:03 12/25/22 09:03 12/25/22 08:59 Oxygen Flow Rate (L/min) 2 Oxygen Delivery Method Room Air Weight: 177 lb 11.081 oz Body Mass Index (BMI) 19.3 Intake & Output: Intake and Output for Last 24 Hours 12/24/22 12/25/22 12/26/22 03:59 03:59 03:59 Intake Total 550 / 550 739.83 / 739.83 Output Total 100 / 100 Balance 550 / 550 639.83 / 639.83 Lab / Micro Data 12/25/22 03:45 12/25/22 03:45 Labs: Laboratory Results - last 24 hr 12/24/22 11:45: WBC 4.9, RBC 4.82, Hgb 14.9, Hct 43.8, MCV 90.9, MCH 30.9, MCHC 34.0, RDW Std Deviation 43.1, RDW Coeff of Leonel 12.9, Plt Count 185, MPV 10.5, Immature Gran % (Auto) 0.600, Neut % (Auto) 69.6, Lymph % (Auto) 21.7, [place] % (Auto) 6.1, Eos % (Auto) 1.6, Baso % (Auto) 0.4, Absolute Neuts (auto) 3.4, Absolute Lymphs (auto) 1.07, Nucleated RBC % 0, Sodium 141, Potassium 4.0, Chloride 109 H, Carbon Dioxide 30.0, Anion Gap 2 L, BUN 13, Creatinine 1.04, Estim Creat Clear Calc 57.32, Est GFR (MDRD) Af Amer 88, Est GFR (MDRD) Non-Af 72, BUN/Creatinine Ratio 12.5, Glucose 110 H, Calcium 8.3 L, Troponin I High Sens 5 12/25/22 03:45: WBC 9.2, RBC 4.46 L, Hgb 13.7, Hct 40.4, MCV 90.6, MCH 30.7, MCHC 33.9, RDW Std Deviation 42.5, RDW Coeff of Leonel 12.8, Plt Count 176, MPV 10.4, Immature Gran % (Auto) 0.200, Neut % (Auto) 82.3 H, Lymph % (Auto) 10.4 L, [place] % (Auto) 6.7, Eos % (Auto) 0.2, Baso % (Auto) 0.2, Absolute Neuts (auto) 7.5, Absolute Lymphs (auto) 0.95, Nucleated RBC % 0, Sodium 140, Potassium 3.8, Chloride 110 H, Carbon Dioxide 27.0, Anion Gap 3 L, BUN 14, Creatinine 1.02, Estim Creat Clear Calc 62.56, Est GFR (MDRD) Af Amer 90, Est GFR (MDRD) Non-Af 74, BUN/Creatinine Ratio 13.7, Glucose 149 H, Calcium 7.9 L, Phosphorus 3.0, Magnesium 1.8, Total Bilirubin 0.50, AST 13 L, ALT 19, Alkaline Phosphatase 74, Total Protein 6.2 L, Albumin 2.7 L, Globulin 3.5, Albumin/Globulin Ratio 0.8 L, Blood Type A POSITIVE, Antibody Screen NEGATIVE Radiography Diagnostic Testing: Radiology Impression Brain CT 12/24/22 11:32 IMPRESSION: Findings suggestive of normal pressure hydrocephalus. Stable examination. Electronically Signed: Tahir Reaves MD at 13:12 EDT , Chest X-Ray 12/24/22 11:32 IMPRESSION: Stable mild pleural-parenchymal changes at the left lung base. Electronically Signed: Tahir Reaves MD at 13:23 EDT , Cervical Spine CT 12/24/22 11:33 IMPRESSION: Multilevel degenerative changes, as described above. Electronically Signed: Tahir Reaves MD at 13:16 EDT , Femur X-Ray 12/24/22 11:33 IMPRESSION: Nondisplaced subcapital fracture. Electronically Signed: Tahir Reaves MD at 13:24 EDT , Pelvis X-Ray 12/24/22 11:33 IMPRESSION: Nondisplaced right subcapital fracture. Electronically Signed: Tahir Reaves MD at 13:25 EDT , Hip/Pelvis X-Ray 12/25/22 07:20 IMPRESSION: Intraoperative fluoroscopic services provided for right hip pinning with cannulated screws. Electronically Signed: Tahir Reaves MD at 9:08 EDT , Physical Exam Narrative General: Alert, uncooperative and confused HEENT: Atraumatic, PERRLA, EOMI, Normocephalic Oral: Moist Mucosa Neck: Supple, No JVD Lungs: Diminished but exam limited due to behaviors, Normal air movement, No rhonchi, No wheeze, No rales Cardiovascular: Regular rate, Regular Rhythm, Normal S1, Normal S2, No murmurs Abdomen: Soft, Non Tender, Non-Distended, No Hepato-splenomegaly Extremities: No edema, Capillary Refill Less than 3 Seconds Skin: Laceration of the right eye Musculoskeletal: Right lower extremity is shorter than the left with scattered ecchymosis Neurological: Moves all of his extremities other than his right lower extremity, exam is limited by behavior Psych/Mental Status: Agitated Assessment & Plan Assessment/Plan (1) Subcapital fracture of hip: (2) Fall: PLAN: Plan 1. Subcapital fracture of the right hip status post fall ? Plan for surgical intervention today ? Continue with IV fluids ? Pain management ? PT/OT ? We will have to discuss with case management about discharge planning whether he can go back to the memory unit or he needs to go skilled first 2. 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 Continue with his home Depakote and nocturnal hydroxyzine ? His every 6 hour hydroxyzine has been held secondary to his fall risk ? We will try him on Risperdal to assist with behaviors 3. Hypothyroidism ? Stable ? Continue with Synthroid 4. Chronic hypotension ? Stable ? Continue with midodrine DVT: Lovenox Charges/Coding Visit Charges Inpatient E&M: 11295 Subs Hosp L2
[2022-12-25] MEDS: Senna/Docusate Sodium 1 Tablet 2 TABLET PO ×2 (10:14→22:52)
[2022-12-25] MEDS: RisperiDONE 0.25 MG Tablet PO (10:14)
[2022-12-25] MEDS: Loratadine 10 MG Tablet PO (10:14)
[2022-12-25] MEDS: Fluticasone 0.05% 1 SPRAY NASAL.SRY 2 SPRAY NASAL (10:14)
[2022-12-25] MEDS: 0.9% Saline Lock 10 ML Syringe IV (10:15)
[2022-12-25] MEDS: Lactated Ringers 1,000 ML 70 ML IV (10:37)
--- NOTE | 2022-12-25 13:37 | CASEMGMT ---
Social Work SW met with pt and pts family, daughters Toma and Adams. Pt is currently a resident at [facility] in the memory care unit. Prior to fall and hip fracture pt was able to transfer from bed and chair independently and ambulate throughout the facility independently. Pt needed assistance with bathing, dressing and toileting. SW discussed discharge plans and options of return to [facility] with home health or go to SNF for short term rehab. Family feels pt will benefit from short term SNF. A list of SNF providers including quality and resource use data and consistent with the patient?s preferred geographic region, medical needs, and insurance network were provided from the [employer] Guide. Family's preferred providers are 1. [facility] 2. [facility] 3. [facility]. Referral to be sent. Pt will need precert prior to discharge to a facility. Plan: [facility], pending acceptance and precert ARCENIO Parker
[2022-12-25] MEDS: oxyCODONE 5 MG Tablet PO ×2 (13:51→17:56)
[2022-12-25] MEDS: Acetaminophen 500 MG Tablet 1000 MG PO ×2 (13:51→22:52)
--- NOTE | 2022-12-25 13:52 | CASEMGMT ---
Discharge Planning Referral sent to Noemi Charlton, and Kh[facility] via [facility]. Clarice Bonner, Discharge Planning Asst.
--- NOTE | 2022-12-25 14:14 | CASEMGMT ---
Social Work SW met with pt's family to discuss advance directives.? Family confirms pt has completed a living will and health care POA naming his daughter Toma Jennings.? Family notified that documents are not on file at [facility] and SW requested they be brought in for scanning into the EMR. Family states docuements are on file at [facility]. Phone call to [facility] and requested documents be faxed to [facility].? ARCENIO Parker
--- NOTE | 2022-12-25 14:23 | CASEMGMT ---
Social Work SW spoke with pt nurse at [facility] and updated that discharge plan is for pt to go to SNF at time of discharge for short term rehab. ARCENIO Parker
--- NOTE | 2022-12-25 14:37 | CASEMGMT ---
Discharge Planning Patient has been accepted by his [facility], [place]. SW updated. Clarice Bonner, Discharge Planning Asst.
[2022-12-25] MEDS: Ensure Plus High Protein 120 ML LIQUID PO ×2 (15:12→22:56)
--- NOTE | 2022-12-25 16:20 | CASEMGMT ---
Social Work Pt accepted at [facility]. Precert will need to be obtained prior to admission. SW updated pt's dgt and dgt agreeable and understanding of discharge plan. Plan: [facility], pending precert S ARCENIO Fallon
[2022-12-25] MEDS: hydrOXYzine PAM 25 MG Capsule PO (17:56)
[2022-12-25] MEDS: RisperiDONE 1 MG Tablet PO (22:51)
[2022-12-25] MEDS: Divalproex Sodium 125 MG Tablet PO (22:51)
[2022-12-25] MEDS: MELATONIN 10 MG TABLET PO (22:52)
[2022-12-25] MEDS: Enoxaparin 40 MG/0.4 ML Syringe SC (22:53)
[2022-12-26 03:23] VITALS: BP 107/59; PULSE 62; RESP 20; TEMP 37; O2SAT 91
[2022-12-26] MEDS: Levothyroxine 150 MCG Tablet PO (06:18)
[2022-12-26] MEDS: Acetaminophen 500 MG Tablet 1000 MG PO ×3 (06:18→22:48)
[2022-12-26 07:00] VITALS: O2SAT 93
[2022-12-26 08:32] VITALS: BP 136/77; PULSE 65; RESP 16; TEMP 36.5; O2SAT 94
[2022-12-26 08:48] LABS: Absolute Lymphocyte Count 1.24 X10^3/uL (0.83-4.51); Basophil# 0.02 X10^3/uL; Basophil% 0.2 % (0-1); Eosinophil# 0.07 X10^3/uL; Eosinophils% 0.7 % (0-5); Hematocrit 41.2 % (40-54); Hemoglobin 13.4 g/dL (13.0-16.5); Lymphocyte # 1.24 X10^3/ul (0.83-4.51); Lymphocyte % 12.3 % (19-41); Mean Corp Hgb Conc 32.5 g/dL (32-36); Mean Corpuscular Hgb 30.7 pg (27.0-32.0); Mean Corpuscular Volume 94.5 fL (80-94); Mean Platelet Vol. 10.6 fl (6.2-12.0); Monocyte# 0.77 X10^3/uL; Monocyte% 7.6 % (0-10); NRBC Flagged by Analyzer 0 % (0-5); Neutrophil # 7.99 X10^3/uL (2.7-7.7); Neutrophil % 78.9 % (47-70); Platelet Count 155 K/mm3 (150-450); RBC Distribution Width CV 13.2 % (11.6-14.6); RBC Distribution Width SD 45.3 fl (35.1-43.9); Red Blood Count 4.36 M/mm3 (4.6-6.2); White Blood Count 10.1 K/mm3 (4.4-11.0)
[2022-12-26 08:53] LABS: Anion Gap 3 (5-15); BUN 12 mg/dL (7-18); BUN/Creat Ratio 14.5 RATIO (10-20); Calcium,Total 8.1 mg/dL (8.5-10.1); Chloride 113 mmol/L (98-107); Creatinine, Serum 0.83 mg/dL (0.70-1.30); EST Glomerular Filtration Rate 94 mL/min (>60); Est Glom Filt Rate - Afr Amer 114 mL/min (>60); Estimated Creatinine Clearance 76.88 ml/min; Glucose 105 mg/dL (74-106); Potassium 3.8 mmol/L (3.5-5.1); Sodium Level 140 mmol/L (136-145)
--- NOTE | 2022-12-26 09:58 | PN.HOSP_ITS ---
Subjective Subjective Doing well, no issues overnight. Minimal pain Objective Data Objective Data Vital Signs: Vital Signs Temp Pulse Resp BP Pulse Ox O2 Del Method O2 Flow Rate 97.7 F L 65 16 136/77 H 94 Room Air 2 12/26/22 08:32 12/26/22 08:32 12/26/22 08:32 12/26/22 08:32 12/26/22 08:32 12/26/22 08:37 12/25/22 11:37 Oxygen Flow Rate (L/min) 2 Oxygen Delivery Method Room Air Weight: 177 lb 11.081 oz Body Mass Index (BMI) 19.3 Intake & Output: Intake and Output for Last 24 Hours 12/25/22 12/26/22 12/27/22 03:59 03:59 03:59 Intake Total 550 / 550 1113.58 / 1113.58 284.75 / 284.75 Output Total 800 / 800 950 / 950 Balance 550 / 550 313.58 / 313.58 -665.25 / -665.25 Lab / Micro Data 12/26/22 08:18 12/26/22 08:18 Labs: Laboratory Results - last 24 hr 12/26/22 08:18: WBC 10.1, RBC 4.36 L, Hgb 13.4, Hct 41.2, MCV 94.5 H, MCH 30.7, MCHC 32.5, RDW Std Deviation 45.3 H, RDW Coeff of Leonel 13.2, Plt Count 155, MPV 10.6, Immature Gran % (Auto) 0.300, Neut % (Auto) 78.9 H, Lymph % (Auto) 12.3 L, [place] % (Auto) 7.6, Eos % (Auto) 0.7, Baso % (Auto) 0.2, Absolute Neuts (auto) 8.0 H, Absolute Lymphs (auto) 1.24, Nucleated RBC % 0, Sodium 140, Potassium 3.8, Chloride 113 H, Carbon Dioxide 24.0, Anion Gap 3 L, BUN 12, Creatinine 0.83, Estim Creat Clear Calc 76.88, Est GFR (MDRD) Af Amer 114, Est GFR (MDRD) Non-Af 94, BUN/Creatinine Ratio 14.5, Glucose 105, Calcium 8.1 L Physical Exam Narrative General: Alert, cooperative and confused HEENT: Atraumatic, PERRLA, EOMI, Normocephalic Oral: Moist Mucosa Neck: Supple, No JVD Lungs: Diminished but exam limited due to behaviors, Normal air movement, No rhonchi, No wheeze, No rales Cardiovascular: Regular rate, Regular Rhythm, Normal S1, Normal S2, No murmurs Abdomen: Soft, Non Tender, Non-Distended, No Hepato-splenomegaly Extremities: No edema, Capillary Refill Less than 3 Seconds Skin: Laceration of the right eye Musculoskeletal: Right lower extremity is shorter than the left with scattered e cchymosis Neurological: Moves all of his extremities other than his right lower extremity, exam is limited by behavior Psych/Mental Status: Flat Assessment & Plan Assessment/Plan (1) Subcapital fracture of hip: (2) Fall: PLAN: Plan 1. Subcapital fracture of the right hip status post fall status post repair 12/25/2022 ? Continue with IV fluids, can discontinue once taking adequate p.o. ? Pain management ? PT/OT ? We will have to discuss with case management about discharge planning whether he can go back to the memory unit or he needs to go skilled first 2. 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 Continue with his home Depakote and nocturnal hydroxyzine ? His every 6 hour hydroxyzine has been held secondary to his fall risk ? We will try him on Risperdal to assist with behaviors 3. Hypothyroidism ? Stable ? Continue with Synthroid 4. Chronic hypotension ? Stable ? Continue with midodrine DVT: Lovenox Charges/Coding Visit Charges Inpatient E&M: 06353 Subs Hosp L2
[2022-12-26] MEDS: Fluticasone 0.05% 1 SPRAY NASAL.SRY 2 SPRAY NASAL (11:02)
[2022-12-26] MEDS: RisperiDONE 0.25 MG Tablet PO (11:02)
[2022-12-26] MEDS: Senna/Docusate Sodium 1 Tablet 2 TABLET PO ×2 (11:02→22:48)
[2022-12-26] MEDS: Enoxaparin 40 MG/0.4 ML Syringe SC (11:02)
[2022-12-26] MEDS: Loratadine 10 MG Tablet PO (11:02)
[2022-12-26] MEDS: Ensure Plus High Protein 120 ML LIQUID PO (11:03)
[2022-12-26] MEDS: oxyCODONE 5 MG Tablet PO ×2 (12:05→16:35)
--- NOTE | 2022-12-26 13:16 | PN.ORTHO_ITS ---
Subjective Subjective Well, minor pain to the hip, up with PT 2 assist and walker Objective Data Objective Data Vital Signs: Vital Signs Temp Pulse Resp BP Pulse Ox O2 Del Method O2 Flow Rate 97.7 F L 65 16 136/77 H 94 Room Air 2 12/26/22 08:32 12/26/22 08:32 12/26/22 08:32 12/26/22 08:32 12/26/22 08:32 12/26/22 08:37 12/25/22 11:37 Oxygen Flow Rate (L/min) 2 Oxygen Delivery Method Room Air Weight: 177 lb 11.081 oz Body Mass Index (BMI) 19.3 Intake & Output: Intake and Output for Last 24 Hours 12/24/22 12/25/22 12/26/22 23:59 23:59 23:59 Intake Total 550 / 550 1113.58 / 1113.58 284.75 / 284.75 Output Total 800 / 800 950 / 950 Balance 550 / 550 313.58 / 313.58 -665.25 / -665.25 Lab / Micro Data Attestation: I reviewed the patient's lab results. 12/26/22 08:18 12/26/22 08:18 Labs: Laboratory Results - last 24 hr 12/26/22 08:18: WBC 10.1, RBC 4.36 L, Hgb 13.4, Hct 41.2, MCV 94.5 H, MCH 30.7, MCHC 32.5, RDW Std Deviation 45.3 H, RDW Coeff of Leonel 13.2, Plt Count 155, MPV 10.6, Immature Gran % (Auto) 0.300, Neut % (Auto) 78.9 H, Lymph % (Auto) 12.3 L, [place] % (Auto) 7.6, Eos % (Auto) 0.7, Baso % (Auto) 0.2, Absolute Neuts (auto) 8.0 H, Absolute Lymphs (auto) 1.24, Nucleated RBC % 0, Sodium 140, Potassium 3.8, Chloride 113 H, Carbon Dioxide 24.0, Anion Gap 3 L, BUN 12, Creatinine 0.83, Estim Creat Clear Calc 76.88, Est GFR (MDRD) Af Amer 114, Est GFR (MDRD) Non-Af 94, BUN/Creatinine Ratio 14.5, Glucose 105, Calcium 8.1 L Physical Exam Const alert and no apparent distress General Appearance: cooperative Extremity normal capillary refill and no calf tenderness Extremity Narrative: drsg dry, thigh soft, no bruising, df and pf foot Assessment & Plan Assessment/Plan (1) Subcapital fracture of hip: PLAN: POD 1 cannulated screw fixation hip fracture. Progressing as expected. Lovenox for vte per hospitalist. CCM. Will follow.
[2022-12-26] MEDS: hydrOXYzine PAM 25 MG Capsule PO (16:36)
[2022-12-26 17:39] VITALS: BP 146/75; PULSE 76; RESP 18; TEMP 36.6; O2SAT 100
[2022-12-26] MEDS: RisperiDONE 1 MG Tablet PO (22:48)
[2022-12-26] MEDS: Divalproex Sodium 125 MG Tablet PO (22:48)
[2022-12-26] MEDS: MELATONIN 10 MG TABLET PO (22:48)
[2022-12-26 22:51] VITALS: BP 151/99; PULSE 75; RESP 16; TEMP 37; O2SAT 94
[2022-12-27 05:31] VITALS: BP 147/88; PULSE 68; RESP 18; TEMP 36.6; O2SAT 93
[2022-12-27] MEDS: Levothyroxine 150 MCG Tablet PO (05:37)
[2022-12-27] MEDS: Acetaminophen 500 MG Tablet 1000 MG PO ×2 (05:37→14:44)
[2022-12-27 05:39] LABS: Absolute Lymphocyte Count 1.54 X10^3/uL (0.83-4.51); Absolute Neutrophil Count 6.7 X10^3/uL (2.0-7.7); Basophil# 0.05 X10^3/uL; Basophil% 0.5 % (0-1); Eosinophil# 0.36 X10^3/uL; Eosinophils% 3.8 % (0-5); Hematocrit 42.9 % (40-54); Hemoglobin 13.7 g/dL (13.0-16.5); Lymphocyte # 1.54 X10^3/ul (0.83-4.51); Lymphocyte % 16.3 % (19-41); Mean Corp Hgb Conc 31.9 g/dL (32-36); Mean Corpuscular Hgb 30.6 pg (27.0-32.0); Mean Platelet Vol. 10.6 fl (6.2-12.0); Monocyte# 0.75 X10^3/uL; Monocyte% 7.9 % (0-10); NRBC Flagged by Analyzer 0 % (0-5); Neutrophil # 6.73 X10^3/uL (2.7-7.7); Neutrophil % 71.1 % (47-70); Platelet Count 165 K/mm3 (150-450); RBC Distribution Width CV 13.2 % (11.6-14.6); RBC Distribution Width SD 47.3 fl (35.1-43.9); Red Blood Count 4.47 M/mm3 (4.6-6.2); White Blood Count 9.5 K/mm3 (4.4-11.0)
[2022-12-27 06:26] LABS: Anion Gap 6 (5-15); BUN 15 mg/dL (7-18); Calcium,Total 8.3 mg/dL (8.5-10.1); Chloride 111 mmol/L (98-107); EST Glomerular Filtration Rate 76 mL/min (>60); Est Glom Filt Rate - Afr Amer 92 mL/min (>60); Estimated Creatinine Clearance 63.81 ml/min; Glucose 103 mg/dL (74-106); Potassium 3.8 mmol/L (3.5-5.1); Sodium Level 141 mmol/L (136-145)
[2022-12-27 08:17] VITALS: O2SAT 93
--- NOTE | 2022-12-27 09:07 | PN.HOSP_ITS ---
Subjective Subjective Doing well, no issues overnight Objective Data Objective Data Vital Signs: Vital Signs Temp Pulse Resp BP Pulse Ox O2 Del Method O2 Flow Rate 97.9 F 68 18 147/88 H 93 Room Air 2 12/27/22 05:31 12/27/22 05:31 12/27/22 05:31 12/27/22 05:31 12/27/22 08:17 12/27/22 08:17 12/25/22 11:37 Oxygen Flow Rate (L/min) 2 Oxygen Delivery Method Room Air Weight: 177 lb 11.081 oz Body Mass Index (BMI) 19.3 Intake & Output: Intake and Output for Last 24 Hours 12/26/22 12/27/22 12/28/22 03:59 03:59 03:59 Intake Total 1113.58 / 1113.58 384.75 / 384.75 50 / 50 Output Total 800 / 800 1750 / 1750 Balance 313.58 / 313.58 -1365.25 / -1365.25 50 / 50 Lab / Micro Data 12/27/22 05:31 12/27/22 05:31 Labs: Laboratory Results - last 24 hr 12/27/22 05:31: WBC 9.5, RBC 4.47 L, Hgb 13.7, Hct 42.9, MCV 96.0 H, MCH 30.6, MCHC 31.9 L, RDW Std Deviation 47.3 H, RDW Coeff of Leonel 13.2, Plt Count 165, MPV 10.6, Immature Gran % (Auto) 0.400, Neut % (Auto) 71.1 H, Lymph % (Auto) 16.3 L, [place] % (Auto) 7.9, Eos % (Auto) 3.8, Baso % (Auto) 0.5, Absolute Neuts (auto) 6.7, Absolute Lymphs (auto) 1.54, Nucleated RBC % 0, Sodium 141, Potassium 3.8, Chloride 111 H, Carbon Dioxide 24.0, Anion Gap 6, BUN 15, Creatinine 1.00, Estim Creat Clear Calc 63.81, Est GFR (MDRD) Af Amer 92, Est GFR (MDRD) Non-Af 76, BUN/Creatinine Ratio 15.0, Glucose 103, Calcium 8.3 L Physical Exam Narrative General: Alert, cooperative and confused HEENT: Atraumatic, PERRLA, EOMI, Normocephalic Oral: Moist Mucosa Neck: Supple, No JVD Lungs: Diminished but exam limited due to behaviors, Normal air movement, No rhonchi, No wheeze, No rales Cardiovascular: Regular rate, Regular Rhythm, Normal S1, Normal S2, No murmurs Abdomen: Soft, Non Tender, Non-Distended, No Hepato-splenomegaly Extremities: No edema, Capillary Refill Less than 3 Seconds Skin: Laceration of the right eye Musculoskeletal: Right lower extremity is shorter than the left with scattered ecchymosis Neurological: Moves all of his extremities other than his right lower extremity, exam is limited by behavior Psych/Mental Status: Flat Assessment & Plan Assessment/Plan (1) Subcapital fracture of hip: (2) Fall: PLAN: Plan 1. Subcapital fracture of the right hip status post fall status post repair 12/25/2022 ? DC IV fluids continue with p.o. intake ? Pain management ? PT/OT ? Planning for SNF placement, pre-CERT is pending 2. 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 Continue with his home Depakote and nocturnal hydroxyzine ? His every 6 hour hydroxyzine has been held secondary to his fall risk ? We will try him on Risperdal to assist with behaviors 3. Hypothyroidism ? Stable ? Continue with Synthroid 4. Chronic hypotension ? Stable ? Continue with midodrine DVT: Lovenox Charges/Coding Visit Charges Inpatient E&M: 25589 Subs Hosp L2
[2022-12-27] MEDS: Enoxaparin 40 MG/0.4 ML Syringe SC (10:53)
[2022-12-27] MEDS: Fluticasone 0.05% 1 SPRAY NASAL.SRY 2 SPRAY NASAL (10:54)
[2022-12-27] MEDS: RisperiDONE 0.25 MG Tablet PO (10:55)
[2022-12-27] MEDS: Loratadine 10 MG Tablet PO (10:57)
[2022-12-27] MEDS: Senna/Docusate Sodium 1 Tablet 2 TABLET PO (10:58)
[2022-12-27 11:00] VITALS: BP 140/80; PULSE 80; RESP 18; TEMP 36.6; O2SAT 94
[2022-12-27] MEDS: oxyCODONE 5 MG Tablet PO (11:09)
[2022-12-27] MEDS: hydrOXYzine PAM 25 MG Capsule PO (17:25)
[2022-12-27] MEDS: oxyCODONE 5 MG Tablet 2.5 MG PO (17:26)
[2022-12-27 17:36] VITALS: BP 148/75; PULSE 66; RESP 18; TEMP 36.8; O2SAT 95
[2022-12-27 19:43] VITALS: BP 154/102; PULSE 94; RESP 18; TEMP 37.3; O2SAT 95
[2022-12-27] MEDS: Ensure Plus High Protein 120 ML LIQUID PO (21:24)
[2022-12-28 06:35] VITALS: BP 133/68; PULSE 84; RESP 18; TEMP 37.2
[2022-12-28] MEDS: Levothyroxine 150 MCG Tablet PO (07:04)
[2022-12-28] MEDS: Acetaminophen 500 MG Tablet 1000 MG PO ×3 (07:05→19:51)
[2022-12-28 07:29] VITALS: O2SAT 95
--- NOTE | 2022-12-28 08:56 | PCM.PN.HOSP ---
Subjective Subjective Doing well, no issues overnight. Behaviors have improved significantly with the risperidone Objective Data Objective Data Vital Signs: Vital Signs Temp Pulse Resp BP Pulse Ox O2 Del Method O2 Flow Rate 98.9 F 84 18 133/68 H 95 Room Air 2 12/28/22 06:35 12/28/22 06:35 12/28/22 06:35 12/28/22 06:35 12/28/22 07:29 12/28/22 07:29 12/25/22 11:37 Oxygen Flow Rate (L/min) 2 Oxygen Delivery Method Room Air Weight: 177 lb 11.081 oz Body Mass Index (BMI) 19.3 Intake & Output: Intake and Output for Last 24 Hours 12/27/22 12/28/22 12/29/22 03:59 03:59 03:59 Intake Total 384.75 / 384.75 290 / 290 60 / 60 Output Total 1750 / 1750 Balance -1365.25 / -1365.25 290 / 290 60 / 60 Lab / Micro Data 12/27/22 05:31 12/27/22 05:31 Physical Exam Narrative General: Alert, but confused HEENT: Atraumatic, PERRLA, EOMI, Normocephalic Oral: Moist Mucosa Neck: Supple, No JVD Lungs: Diminished, Normal air movement, No rhonchi, No wheeze, No rales Cardiovascular: Regular rate, Regular Rhythm, Normal S1, Normal S2, No murmurs Abdomen: Soft, Non Tender, Non-Distended, No Hepato-splenomegaly Extremities: No edema, Capillary Refill Less than 3 Seconds Skin: Laceration of the right eye, surgical incision CDI Musculoskeletal: No tenderness to palpation of joints or extremities Neurological: Exam limited by mental status and dementia Psych/Mental Status: Flat Assessment & Plan Assessment/Plan (1) Subcapital fracture of hip: (2) Fall: PLAN: Plan 1. Subcapital fracture of the right hip status post fall status post repair 12/25/2022 ? DC IV daughters at bedside and states that he is having poor p.o. intake. We had a 25-minute discussion on advance care planning given his current situation with his dementia and his hip fracture. We discussed specifically prognosis is well as options after discharge including hospice ? Pain management ? PT/OT ? Planning for SNF placement, pre-CERT is pending 2. 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 Continue with his home Depakote and nocturnal hydroxyzine ? His every 6 hour hydroxyzine has been held secondary to his fall risk ? We will try him on Risperdal to assist with behaviors 3. Hypothyroidism ? Stable ? Continue with Synthroid 4. Chronic hypotension ? Stable ? Continue with midodrine DVT: Lovenox Charges/Coding Visit Charges Inpatient E&M: 16830 Subs Hosp L2 Procedures Hospitalists Procedures: 85899 Advncd Care Plan 30 Min
[2022-12-28 10:35] VITALS: BP 146/94; PULSE 66; RESP 16; TEMP 37; O2SAT 94
[2022-12-28] MEDS: Enoxaparin 40 MG/0.4 ML Syringe SC (12:40)
--- NOTE | 2022-12-28 13:32 | CASEMGMT ---
Social Work - Discharge Planning/Family update Spoke with Clarice, Discharge It Support Manager today. The [facility] is working on insurance precert. Met with patient's daughter Jessy in room, as daughter requested to speak with social work for an update. Informed that patient was accepted to [facility], but now waiting on insurance authorization. Jessy discussed that patient has been a resident at [place] [facility] in the memory care unit for a year and a half, but feels patient needs more care than assisted living can offer, though worried about patient and so many moves. This science writer did offer to send information to [place], so facility can review and determine whether increased care can be offered. Educated that often assisted living can provide more care, but change in care is reflective in cost. Educated that therapy would be less days in a week at assisted living versus a NF. Jessy reports this was reviewed last week by [facility] ARCENIO Heller. Jessy reports desire to stay the course with [facility]. Jessy discussed that patient had been up and moving, pacing a lot in the room recently, which Jessy could see due to having a camera in patient's room. This science writer provided brief education on palliative care services as a service to work in conjunction with PCP, and to help those with chronic disease which are having difficulty with symptom control. Educated this can be offered at either assisted living or NF levels of care, should family ever want to explore this type of service for the patient. Jessy thanked for information. Jessy asked about transportation. Educated that hospital can assist with arranging transportation. Jessy reports to feel a transport company would be the safest for patient at this time. Plan: [facility], pending precert for skilled services. Family to be updated when hear back from insurance. -KOFI Leyva
[2022-12-28] MEDS: Senna/Docusate Sodium 1 Tablet 2 TABLET PO ×2 (14:02→19:51)
[2022-12-28] MEDS: RisperiDONE 0.25 MG Tablet PO (14:04)
[2022-12-28] MEDS: hydrOXYzine PAM 25 MG Capsule PO (16:25)
[2022-12-28 17:53] VITALS: BP 158/88; PULSE 64; RESP 18; TEMP 37.1; O2SAT 97
[2022-12-28] MEDS: oxyCODONE 5 MG Tablet PO (17:59)
[2022-12-28] MEDS: MELATONIN 10 MG TABLET PO (19:51)
[2022-12-28] MEDS: RisperiDONE 1 MG Tablet PO (19:51)
[2022-12-28] MEDS: Divalproex Sodium 125 MG Tablet PO (19:52)
[2022-12-29 00:19] VITALS: BP 130/61; PULSE 63; RESP 18; TEMP 36.6; O2SAT 92
[2022-12-29 06:28] VITALS: BP 124/63; PULSE 79; RESP 16; TEMP 36.4; O2SAT 92
[2022-12-29 07:15] LABS: Absolute Neutrophil Count 4.3 X10^3/uL (2.0-7.7); Basophil# 0.03 X10^3/uL; Basophil% 0.5 % (0-1); Eosinophil# 0.27 X10^3/uL; Eosinophils% 4.4 % (0-5); Hematocrit 42.7 % (40-54); Hemoglobin 14.1 g/dL (13.0-16.5); Lymphocyte % 16.4 % (19-41); Mean Corpuscular Hgb 30.7 pg (27.0-32.0); Mean Corpuscular Volume 92.8 fL (80-94); Mean Platelet Vol. 11.1 fl (6.2-12.0); Monocyte# 0.46 X10^3/uL; Monocyte% 7.6 % (0-10); NRBC Flagged by Analyzer 0 % (0-5); Neutrophil % 70.8 % (47-70); Platelet Count 198 K/mm3 (150-450); RBC Distribution Width CV 12.7 % (11.6-14.6); RBC Distribution Width SD 43.6 fl (35.1-43.9); White Blood Count 6.1 K/mm3 (4.4-11.0)
[2022-12-29 07:56] LABS: Anion Gap 5 (5-15); BUN 17 mg/dL (7-18); BUN/Creat Ratio 19.4 RATIO (10-20); Calcium,Total 8.5 mg/dL (8.5-10.1); Chloride 108 mmol/L (98-107); Creatinine, Serum 0.88 mg/dL (0.70-1.30); EST Glomerular Filtration Rate 88 mL/min (>60); Est Glom Filt Rate - Afr Amer 107 mL/min (>60); Estimated Creatinine Clearance 72.51 ml/min; Glucose 104 mg/dL (74-106); Potassium 3.5 mmol/L (3.5-5.1); Sodium Level 139 mmol/L (136-145)
--- NOTE | 2022-12-29 08:56 | PN.HOSP_ITS ---
Reason for Visit Reason for Visit: Diagnoses Unspecified intracapsular fracture of unspecified femur, initial encounter for closed fracture (12/24/22) Unspecified fall, initial encounter (12/24/22) Objective Data Objective Data Vital Signs: Vital Signs Temp Pulse Resp BP Pulse Ox O2 Del Method O2 Flow Rate 97.6 F L 79 16 124/63 H 92 Room Air 2 12/29/22 06:28 12/29/22 06:28 12/29/22 06:28 12/29/22 06:28 12/29/22 06:28 12/29/22 06:28 12/25/22 11:37 Oxygen Flow Rate (L/min) 2 Oxygen Delivery Method Room Air Weight: 80.6 kg Body Mass Index (BMI) 19.3 Intake & Output: Intake and Output for Last 24 Hours 12/27/22 12/28/22 12/29/22 23:59 23:59 23:59 Intake Total 330 / 330 620 / 620 100 / 100 Output Total 200 / 200 300 / 300 0 / 0 Balance 130 / 130 320 / 320 100 / 100 Lab / Micro Data 12/29/22 05:58 12/29/22 05:58 Labs: Laboratory Results - last 24 hr 12/29/22 05:58: WBC 6.1, RBC 4.60, Hgb 14.1, Hct 42.7, MCV 92.8, MCH 30.7, MCHC 33.0, RDW Std Deviation 43.6, RDW Coeff of Leonel 12.7, Plt Count 198, MPV 11.1, Immature Gran % (Auto) 0.300, Neut % (Auto) 70.8 H, Lymph % (Auto) 16.4 L, [place] % (Auto) 7.6, Eos % (Auto) 4.4, Baso % (Auto) 0.5, Absolute Neuts (auto) 4.3, Absolute Lymphs (auto) 1.00, Nucleated RBC % 0, Sodium 139, Potassium 3.5, Chlo ride 108 H, Carbon Dioxide 26.0, Anion Gap 5, BUN 17, Creatinine 0.88, Estim Creat Clear Calc 72.51, Est GFR (MDRD) Af Amer 107, Est GFR (MDRD) Non-Af 88, BUN/Creatinine Ratio 19.4, Glucose 104, Calcium 8.5 Assessment & Plan Assessment/Plan (1) Subcapital fracture of hip: (2) Fall: PLAN: Plan Is an 82-year-old gentleman 1. Subcapital fracture of the right hip status post fall status post repair 12/25/2022 ? DC IV daughters at bedside and states that he is having poor p.o. intake. We had a 25-minute discussion on advance care planning given his current situation with his dementia and his hip fracture. We discussed specifically prognosis is well as options after discharge including hospice ? Pain management ? PT/OT ? Planning for SNF placement, pre-CERT is pending 2. 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 Continue with his home Depakote and nocturnal hydroxyzine ? His every 6 hour hydroxyzine has been held secondary to his fall risk ? We will try him on Risperdal to assist with behaviors 3. Hypothyroidism ? Stable ? Continue with Synthroid 4. Chronic hypotension ? Stable ? Continue with midodrine DVT: Lovenox
--- NOTE | 2022-12-29 08:56 | PCM.PN.HOSP ---
Reason for Visit Reason for Visit: Diagnoses Unspecified intracapsular fracture of unspecified femur, initial encounter for closed fracture (12/24/22) Unspecified fall, initial encounter (12/24/22) Subjective Subjective Patient is an 82-year-old gentleman with history of dementia who was found on the floor at an extended care facility in the patient's room. Patient was noted to have subcapital fracture involving the right hip underwent surgical repair on 12/25/2022 Objective Data Objective Data Vital Signs: Vital Signs Temp Pulse Resp BP Pulse Ox O2 Del Method O2 Flow Rate 97.6 F L 79 16 124/63 H 92 Room Air 2 12/29/22 06:28 12/29/22 06:28 12/29/22 06:28 12/29/22 06:28 12/29/22 06:28 12/29/22 06:28 12/25/22 11:37 Oxygen Flow Rate (L/min) 2 Oxygen Delivery Method Room Air Weight: 80.6 kg Body Mass Index (BMI) 19.3 Intake & Output: Intake and Output for Last 24 Hours 12/27/22 12/28/22 12/29/22 23:59 23:59 23:59 Intake Total 330 / 330 620 / 620 100 / 100 Output Total 200 / 200 300 / 300 0 / 0 Balance 130 / 130 320 / 320 100 / 100 Lab / Micro Data 12/29/22 05:58 12/29/22 05:58 Labs: Laboratory Results - last 24 hr 12/29/22 05:58: WBC 6.1, RBC 4.60, Hgb 14.1, Hct 42.7, MCV 92.8, MCH 30.7, MCHC 33.0, RDW Std Deviation 43.6, RDW Coeff of Leonel 12.7, Plt Count 198, MPV 11.1, Immature Gran % (Auto) 0.300, Neut % (Auto) 70.8 H, Lymph % (Auto) 16.4 L, [place] % (Auto) 7.6, Eos % (Auto) 4.4, Baso % (Auto) 0.5, Absolute Neuts (auto) 4.3, Absolute Lymphs (auto) 1.00, Nucleated RBC % 0, Sodium 139, Potassium 3.5, Chloride 108 H, Carbon Dioxide 26.0, Anion Gap 5, BUN 17, Creatinine 0.88, Estim Creat Clear Calc 72.51, Est GFR (MDRD) Af Amer 107, Est GFR (MDRD) Non-Af 88, BUN/Creatinine Ratio 19.4, Glucose 104, Calcium 8.5 Physical Exam Narrative GENERAL: Patient in no apparent distress HEENT: ; normocephalic EYES; Anicteric, Normal Conjunctiva NECK; supple, normal thyroid, RESPIRATORY: Diminished to auscultation CARDIOVASCULAR: Regular S1 S2, GI: soft, normoactive bowel sounds, : No Renal angle tenderness; EXTREMITIES: No edema, no clubbing, MUSCULOSKELETAL: no muscle wasting NEURO: Awake; no lateralizing signs. SKIN: No Rash PSYCH; Flat affect Assessment & Plan Assessment/Plan (1) Subcapital fracture of hip: (2) Fall: PLAN: Plan Patient is an 82-year-old gentleman with history of dementia who was found on the floor at an extended care facility in the patient's room. Patient was noted to have subcapital fracture involving the right hip underwent surgical repair on 12/25/2022 1. Subcapital fracture of the right hip status post fall status post repair 12/25/[address] Mcfarlane. Patient has subsequently undergo PT/OT awaiting insurance pre-CERT prior to being discharged to ECF 2. Normal pressure hydrocephalus ? Stable 3. Dementia with behavioral agitation ? Patient was started on Risperdal 4. Hypothyroidism - Patient is on levothyroxine home dose continued 5. Chronic hypotension ? Patient is on midodrine 6. DVT prophylaxis ? SC Lovenox Time spent in the patient's overall evaluation,decision-making process, review of diagnostic data, adjustment of management, discussion with other providers, nursing nursing and ancillary staff involved in patient's care documentation, 35 Minutes Charges/Coding Visit Charges Inpatient E&M: 67981 Subs Hosp L2
[2022-12-29] MEDS: Senna/Docusate Sodium 1 Tablet 2 TABLET PO (09:34)
[2022-12-29] MEDS: Levothyroxine 150 MCG Tablet PO (09:35)
[2022-12-29] MEDS: Loratadine 10 MG Tablet PO (09:35)
[2022-12-29] MEDS: Acetaminophen 500 MG Tablet 1000 MG PO ×2 (09:35→16:06)
[2022-12-29] MEDS: Fluticasone 0.05% 1 SPRAY NASAL.SRY 2 SPRAY NASAL (09:36)
[2022-12-29] MEDS: RisperiDONE 0.25 MG Tablet PO (09:36)
[2022-12-29] MEDS: Enoxaparin 40 MG/0.4 ML Syringe SC (09:37)
[2022-12-29 10:33] VITALS: BP 90/58; PULSE 86; RESP 12; TEMP 36.8; O2SAT 94
[2022-12-29 12:18] VITALS: BP 107/64
--- NOTE | 2022-12-29 14:23 | CASEMGMT ---
Social Work Precert has been obtained for pt to admit to [facility] on Wednesday. Physician updated. SW met with pt's daughter and notified her precert and that pt will [facility] tomorrow. [facility]
[2022-12-29] MEDS: oxyCODONE 5 MG Tablet PO (16:07)
[2022-12-29] MEDS: hydrOXYzine PAM 25 MG Capsule PO (16:07)
[2022-12-29 16:09] VITALS: BP 142/88; PULSE 70; RESP 18; TEMP 36.5; O2SAT 97
[2022-12-29] MEDS: MELATONIN 10 MG TABLET PO (19:58)
[2022-12-29] MEDS: RisperiDONE 1 MG Tablet PO (19:59)
[2022-12-29] MEDS: Divalproex Sodium 125 MG Tablet PO (19:59)
[2022-12-29 20:37] VITALS: BP 116/64; PULSE 72; RESP 18; TEMP 36.6; O2SAT 97
[2022-12-30] MEDS: oxyCODONE 5 MG Tablet PO ×2 (02:32→10:14)
[2022-12-30 02:36] VITALS: BP 142/69; PULSE 74; RESP 18; TEMP 36.4; O2SAT 96
[2022-12-30] MEDS: Acetaminophen 500 MG Tablet 1000 MG PO (06:16)
[2022-12-30] MEDS: Levothyroxine 150 MCG Tablet PO (06:16)
[2022-12-30 06:55] LABS: Absolute Lymphocyte Count 0.97 X10^3/uL (0.83-4.51); Absolute Neutrophil Count 5.4 X10^3/uL (2.0-7.7); Basophil# 0.04 X10^3/uL; Basophil% 0.6 % (0-1); Eosinophil# 0.23 X10^3/uL; Eosinophils% 3.2 % (0-5); Hematocrit 42.8 % (40-54); Hemoglobin 14.4 g/dL (13.0-16.5); Lymphocyte # 0.97 X10^3/ul (0.83-4.51); Lymphocyte % 13.5 % (19-41); Mean Corp Hgb Conc 33.6 g/dL (32-36); Mean Corpuscular Hgb 30.8 pg (27.0-32.0); Mean Corpuscular Volume 91.5 fL (80-94); Mean Platelet Vol. 10.3 fl (6.2-12.0); NRBC Flagged by Analyzer 0 % (0-5); Neutrophil # 5.41 X10^3/uL (2.7-7.7); Neutrophil % 75.1 % (47-70); Platelet Count 218 K/mm3 (150-450); RBC Distribution Width CV 12.8 % (11.6-14.6); RBC Distribution Width SD 42.6 fl (35.1-43.9); Red Blood Count 4.68 M/mm3 (4.6-6.2); White Blood Count 7.2 K/mm3 (4.4-11.0)
--- NOTE | 2022-12-30 07:51 | PCM.PN.HOSP ---
Reason for Visit Reason for Visit: Diagnoses Unspecified intracapsular fracture of unspecified femur, initial encounter for closed fracture (12/24/22) Unspecified fall, initial encounter (12/24/22) Subjective Subjective Patient seen resting comfortably plan is for patient to be discharged to [facility] Objective Data Objective Data Vital Signs: Vital Signs Temp Pulse Resp BP Pulse Ox O2 Del Method O2 Flow Rate 97.6 F L 74 18 142/69 H 96 Room Air 2 12/30/22 02:36 12/30/22 02:36 12/30/22 02:36 12/30/22 02:36 12/30/22 02:36 12/30/22 02:36 12/25/22 11:37 Oxygen Flow Rate (L/min) 2 Oxygen Delivery Method Room Air Weight: 80.6 kg Body Mass Index (BMI) 19.3 Intake & Output: Intake and Output for Last 24 Hours 12/28/22 12/29/22 12/30/22 23:59 23:59 23:59 Intake Total 620 / 620 1250 / 1250 200 / 200 Output Total 300 / 300 0 / 0 Balance 320 / 320 1250 / 1250 200 / 200 Lab / Micro Data 12/30/22 06:40 12/30/22 06:40 Labs: Laboratory Results - last 24 hr 12/29/22 05:58: Sodium 139, Potassium 3.5, Chloride 108 H, Carbon Dioxide 26.0, Anion Gap 5, BUN 17, Creatinine 0.88, Estim Creat Clear Calc 72.51, Est GFR (MDRD) Af Amer 107, Est GFR (MDRD) Non-Af 88, BUN/Creatinine Ratio 19.4, Glucose 104, Calcium 8.5 12/30/22 06:40: WBC 7.2, RBC 4.68, Hgb 14.4, Hct 42.8, MCV 91.5, MCH 30.8, MCHC 33.6, RDW Std Deviation 42.6, RDW Coeff of Leonel 12.8, Plt Count 218, MPV 10.3, Immature Gran % (Auto) 0.600, Neut % (Auto) 75.1 H, Lymph % (Auto) 13.5 L, [place] % (Auto) 7.0, Eos % (Auto) 3.2, Baso % (Auto) 0.6, Absolute Neuts (auto) 5.4, Absolute Lymphs (auto) 0.97, Nucleated RBC % 0 Physical Exam Narrative GENERAL: Patient in no apparent distress HEENT: ; normocephalic EYES; Anicteric, Normal Conjunctiva NECK; supple, normal thyroid, RESPIRATORY: Diminished to auscultation CARDIOVASCULAR: Regular S1 S2, GI: soft, normoactive bowel sounds, : No Renal angle tenderness; EXTREMITIES: No edema, no clubbing, MUSCULOSKELETAL: no muscle wasting NEURO: Awake; no lateralizing signs. SKIN: No Rash PSYCH; Flat affect Assessment & Plan Assessment/Plan (1) Subcapital fracture of hip: (2) Fall: PLAN: Plan Patient is an 82-year-old gentleman with history of dementia who was found on the floor at an extended care facility in the patient's room. Patient was noted to have subcapital fracture involving the right hip underwent surgical repair on 12/25/2022 1. Subcapital fracture of the right hip status post fall status post repair 12/25/[address] Mcfarlane. Patient has subsequently undergo PT/OT awaiting insurance pre-CERT prior to being discharged to [facility] 2. Normal pressure hydrocephalus ? Stable 3. Dementia with behavioral agitation ? Patient was started on Risperdal 4. Hypothyroidism - Patient is on levothyroxine home dose continued 5. Chronic hypotension ? Patient is on midodrine 6. DVT prophylaxis ? SC Lovenox Time spent in the patient's overall evaluation,decision-making process, review of diagnostic data, adjustment of management, discussion with other providers, nursing nursing and ancillary staff involved in patient's care documentation, 35 Minutes Charges/Coding Visit Charges Inpatient E&M: 05682 Subs Hosp L2
[2022-12-30 07:52] LABS: Anion Gap 6 (5-15); BUN 20 mg/dL (7-18); BUN/Creat Ratio 21.3 RATIO (10-20); Calcium,Total 8.5 mg/dL (8.5-10.1); Chloride 108 mmol/L (98-107); Creatinine, Serum 0.94 mg/dL (0.70-1.30); EST Glomerular Filtration Rate 81 mL/min (>60); Est Glom Filt Rate - Afr Amer 98 mL/min (>60); Estimated Creatinine Clearance 67.88 ml/min; Glucose 129 mg/dL (74-106); Magnesium 2.1 mg/dL (1.6-2.6); Potassium 3.7 mmol/L (3.5-5.1); Sodium Level 139 mmol/L (136-145)
[2022-12-30 08:55] VITALS: BP 142/57; PULSE 61; RESP 16; TEMP 36.4; O2SAT 100
--- NOTE | 2022-12-30 09:07 | TREXTCAR_ITS ---
Diet Diet Order/Speech Therapy: 12/25/22 13:36 Diet: Regular - General Is pt able to select menu?: No Diet Comments: 8 oz milkshake w/ L&D; cut entrees bite size pieces - except sandwiches Routine Orders/Code Status Code [facility]: [facility] Wound(s) right eyebrow: Wound Type: Laceration RIGHT HIP: Wound Type: Surgical Incision Therapies Physical Therapy: Eval and Treat Occupational Therapy: Eval and Treat Speech Therapy: Eval and Treat Problem/Diagnosis (1) Subcapital fracture of hip: Status: Acute Code(s): S72.019A - Unspecified intracapsular fracture of unspecified femur, initial encounter for closed fracture (2) Fall: Status: Acute Code(s): W19.XXXA - Unspecified fall, initial encounter Plan Patient is an 82-year-old gentleman with history of dementia who was found on the floor at an extended care facility in the patient's room. Patient was noted to have subcapital fracture involving the right hip underwent surgical repair on 12/25/2022 1. Subcapital fracture of the right hip status post fall status post repair 12/25/[address] Mcfarlane. Patient has subsequently undergo PT/OT awaiting insurance pre-CERT prior to being discharged to [facility] 2. Normal pressure hydrocephalus ? Stable 3. Dementia with behavioral agitation ? Patient was started on Risperdal 4. Hypothyroidism - Patient is on levothyroxine home dose continued 5. Chronic hypotension ? Patient is on midodrine 6. DVT prophylaxis ? SC Lovenox Time spent in the patient's overall evaluation,decision-making process, review of diagnostic data, adjustment of management, discussion with other providers, nursing nursing and ancillary staff involved in patient's care documentation, 35 Minutes Allergies/Procedures Done in Hospital Allergies No Known Allergies Allergy (Verified 12/24/22 10:53) Type of Care/Length of Stay Estimated LOS: More Than 30 Days Type of Care Needed: Intermediate Rehab Potential: Fair Prognosis: Fair Additional Orders/Day of Discharge Day of Discharge: 12/30/22 Dietary and Speech Recommendations Dietitian Recommendations/Changes: Continue liberal Regular diet Will order d/c 4 oz ensure plus high protein 4x/day w/ medpass d/t frequent refusals and order 8 oz milkshakes w/ lunch and dinner instead. Will continue nonselect menu, needs set up assist and to have entrees cut into bite size pieces (not sandwiches) for ease of eating per pt family request. Discharge Plan Admission Admit Date/Time: 12/24/22 14:51 Attending Provider: Joe Lynn Primary Care Provider: Kavya Cardona Consulting Providers: Harjit Mcfarlane; Lenore Daly; Lamberto Rider Discharge Orders/Prescriptions Prescriptions: New acetaminophen 500 mg Tablet 1,000 mg PO Q8 Qty: 0 0RF sennosides-docusate sodium [Stool Softener-Stimulant Laxat] 8.6-50 mg Tablet 2 tab PO BID Qty: 0 0RF enoxaparin 40 mg/0.4 mL Syringe 40 mg subcut DAILY 30 Days Qty: 0 0RF risperidone 0.25 mg Tablet 0.25 mg PO DAILY Qty: 0 0RF risperidone 1 mg Tablet 1 mg PO QHS Qty: 0 0RF oxycodone 5 mg Tablet 5 mg PO Q4H PRN PRN (Reason: Pain Score 4-10) 2 Days Qty: 8 0RF Continued levothyroxine 150 mcg tablet 150 mcg PO DAILY loratadine 10 mg Tablet 10 mg PO DAILY Flonase Sensimist 27.5 mcg/actuation [place],Suspension 2 spray INTRANASAL DAILY divalproex 125 mg tablet,delayed release (DR/EC) 125 mg PO QHS hydroxyzine pamoate 25 mg capsule 25 mg PO Q6H PRN (Reason: anxiety) melatonin 10 mg tablet 10 mg PO QHS hydroxyzine pamoate 25 mg capsule 25 mg PO DINNER midodrine 2.5 mg tablet 2.5 mg PO TID Referrals / Follow Up: Kavya Cardona MD [Primary Care Provider] - Disposition Disposition (needs filled in before D/C Order can be placed): [facility] Facility
--- NOTE | 2022-12-30 09:11 | PCM.DC.SUM ---
Providers Date of Admission: 12/24/22 Date of Discharge: 12/30/22 Primary Care Physician: Dr. Kavya Cardona MD Consultations 12/24/22 16:33 Consult: Onc/Wound/certified prosthetist vice president Routine Comment: Consult: Orthopedics Routine Consulting Provider: Harjit Mcfarlane Reason for Consult: R Femoral Subcapital Fx EMERGENT Consult: No MD Notified: Yes Date Notified: 12/24/22 Time Notified: 14:55 Method of Notification: ED Physician Initiated Reason For Visit: R FEMORAL SUBCAPITAL HIP FX Diagnosis Discharge Diagnosis (1) Subcapital fracture of hip: Status: Acute Code(s): S72.019A - Unspecified intracapsular fracture of unspecified femur, initial encounter for closed fracture (2) Fall: Status: Acute Code(s): W19.XXXA - Unspecified fall, initial encounter Plan Patient is an 82-year-old gentleman with history of dementia who was found on the floor at an extended care facility in the patient's room. Patient was noted to have subcapital fracture involving the right hip underwent surgical repair on 12/25/2022 1. Subcapital fracture of the right hip status post fall status post repair 12/25/[address] Mcfarlane. Patient has subsequently undergo PT/OT awaiting insurance pre-CERT prior to being discharged to [facility] 2. Normal pressure hydrocephalus ? Stable 3. Dementia with behavioral agitation ? Patient was started on Risperdal 4. Hypothyroidism - Patient is on levothyroxine home dose continued 5. Chronic hypotension ? Patient is on midodrine 6. DVT prophylaxis ? SC Lovenox Time spent in the patient's overall evaluation,decision-making process, review of diagnostic data, adjustment of management, discussion with other providers, nursing nursing and ancillary staff involved in patient's care documentation, 35 Minutes Medications at Discharge Home Medications fluticasone furoate 27.5 mcg/actuation nasal spray,suspension (Flonase Sensimist) 2 spray intranasal DAILY allergies 12/09/21 levothyroxine 150 mcg tablet 150 mcg PO DAILY thyroid 12/09/21 loratadine 10 mg tablet 10 mg PO DAILY allergies 12/09/21 divalproex 125 mg tablet,delayed release 125 mg PO QHS seizures 09/25/22 hydroxyzine pamoate 25 mg capsule 25 mg PO Q6H PRN anxiety 09/25/22 melatonin 10 mg tablet 10 mg PO QHS insomnia 09/25/22 hydroxyzine pamoate 25 mg capsule 25 mg PO DINNER anxiety 12/24/22 midodrine 2.5 mg tablet 2.5 mg PO TID blood pressure 12/24/22 acetaminophen 500 mg tablet 1,000 mg (2 x 500 mg) PO Q8 #0 tabs 12/30/22 enoxaparin 40 mg/0.4 mL subcutaneous syringe 40 mg (0.4 mL) subcut DAILY 30 days #0 mL 12/30/22 oxycodone 5 mg tablet 5 mg PO Q4H PRN PRN Pain Score 4-10 2 days #8 tabs 12/30/22 risperidone 0.25 mg tablet 0.25 mg PO DAILY #0 tabs 12/30/22 risperidone 1 mg tablet 1 mg PO QHS #0 tabs 12/30/22 sennosides 8.6 mg-docusate sodium 50 mg tablet (Stool Softener-Stimulant Laxative) 2 tab PO BID #0 tabs 12/30/22 Hospital Course Summary of Care Provided Minutes Spent on Discharge: 35 Physical Exam Narrative GENERAL: Patient in no apparent distress HEENT: ; normocephalic EYES; Anicteric, Normal Conjunctiva NECK; supple, normal thyroid, RESPIRATORY: Diminished to auscultation CARDIOVASCULAR: Regular S1 S2, GI: soft, normoactive bowel sounds, : No Renal angle tenderness; EXTREMITIES: No edema, no clubbing, MUSCULOSKELETAL: no muscle wasting NEURO: Awake; no lateralizing signs. SKIN: No Rash PSYCH; Flat affect Weight / BMI Weight Weight: 80.6 kg Body Mass Index (BMI) 19.3 ABG / Lab / Microbiology Data 12/30/22 06:40 12/30/22 06:40 Laboratory: Laboratory Results - last 24 hr 12/30/22 06:40: WBC 7.2, RBC 4.68, Hgb 14.4, Hct 42.8, MCV 91.5, MCH 30.8, MCHC 33.6, RDW Std Deviation 42.6, RDW Coeff of Leonel 12.8, Plt Count 218, MPV 10.3, Immature Gran % (Auto) 0.600, Neut % (Auto) 75.1 H, Lymph % (Auto) 13.5 L, [place] % (Auto) 7.0, Eos % (Auto) 3.2, Baso % (Auto) 0.6, Absolute Neuts (auto) 5.4, Absolute Lymphs (auto) 0.97, Nucleated RBC % 0, Sodium 139, Potassium 3.7, Chloride 108 H, Carbon Dioxide 25.0, Anion Gap 6, BUN 20 H, Creatinine 0.94, Estim Creat Clear Calc 67.88, Est GFR (MDRD) Af Amer 98, Est GFR (MDRD) Non-Af 81, BUN/Creatinine Ratio 21.3 H, Glucose 129 H, Calcium 8.5, Phosphorus 3.0, Magnesium 2.1 D/C Instructions Discharge Diet: No restrictions Discharge Activity: Return to Normal Activity Call your doctor if you observe: Fever of 101 or Higher, Shortness of breath, Fainting spells and Chest pain Meaningful Use Info Meaningful Use Diagnoses (Choose all that apply): None applicable Discharge Plan Admission Admit Date/Time: 12/24/22 14:51 Attending Provider: Joe Lynn Primary Care Provider: Kavya Cardona Consulting Providers: Harjit Mcfarlane; Lenore Daly; Lamberto Rider Discharge Orders/Prescriptions Prescriptions: New acetaminophen 500 mg Tablet 1,000 mg PO Q8 Qty: 0 0RF sennosides-docusate sodium [Stool Softener-Stimulant Laxat] 8.6-50 mg Tablet 2 tab PO BID Qty: 0 0RF enoxaparin 40 mg/0.4 mL Syringe 40 mg subcut DAILY 30 Days Qty: 0 0RF risperidone 0.25 mg Tablet 0.25 mg PO DAILY Qty: 0 0RF risperidone 1 mg Tablet 1 mg PO QHS Qty: 0 0RF oxycodone 5 mg Tablet 5 mg PO Q4H PRN PRN (Reason: Pain Score 4-10) 2 Days Qty: 8 0RF Continued levothyroxine 150 mcg tablet 150 mcg PO DAILY loratadine 10 mg Tablet 10 mg PO DAILY Flonase Sensimist 27.5 mcg/actuation [place],Suspension 2 spray INTRANASAL DAILY divalproex 125 mg tablet,delayed release (DR/EC) 125 mg PO QHS hydroxyzine pamoate 25 mg capsule 25 mg PO Q6H PRN (Reason: anxiety) melatonin 10 mg tablet 10 mg PO QHS hydroxyzine pamoate 25 mg capsule 25 mg PO DINNER midodrine 2.5 mg tablet 2.5 mg PO TID Referrals / Follow Up: Kavya Cardona MD [Primary Care Provider] - Disposition Disposition (needs filled in before D/C Order can be placed): [facility] Facility Charges/Coding Visit Charges Inpatient E&M: 28976 Disch Hosp >30min
--- NOTE | 2022-12-30 09:18 | CASEMGMT ---
Social Work 7000 convalescent from completed in [facility] for admission to SNF today. Disposition: [facility], Skilled level of Care under convalescent stay. ARCENIO Parker
[2022-12-30] MEDS: Senna/Docusate Sodium 1 Tablet 2 TABLET PO (10:15)
[2022-12-30] MEDS: Loratadine 10 MG Tablet PO (10:16)
[2022-12-30] MEDS: Enoxaparin 40 MG/0.4 ML Syringe SC (10:16)
[2022-12-30] MEDS: RisperiDONE 0.25 MG Tablet PO (10:16)
[2022-12-30] MEDS: Fluticasone 0.05% 1 SPRAY NASAL.SRY 2 SPRAY NASAL (10:17)
--- NOTE | 2022-12-30 10:30 | CASEMGMT ---
Discharge Planning Discharge orders, signed med list, and transport time sent to [facility] via [facility]. [facility] will transport patient by cot at 11:30a. Nursing, SW, and patients daughter updated. Clarice Bonner, Discharge Planning Asst.
== END 2022-12-30 12:13 | disposition skilled nursing facility (03) | DRG 481 ==
LOC: ED 14:57 → MS3 15:12
PROVIDERS: Family Medicine; Orthopaedic Surgery Sports Medicine; Admitting Provider Internal Medicine; Emergency Provider Emergency Medicine; PCP Family Medicine; Visit Provider Internal Medicine
PROC: 0QS606Z Reposition Right Upper Femur with Intramedullary Internal Fixation Device, Open Approach (ICD-10-PCS; principal; 2022-12-25 07:00)
DX: S72.011A Unspecified intracapsular fracture of right femur, initial encounter for closed fracture (principal); G91.2 (Idiopathic) normal pressure hydrocephalus; F03.C18 Unspecified dementia, severe, with other behavioral disturbance; I95.89 Other hypotension; E03.9 Hypothyroidism, unspecified; W19.XXXA Unspecified fall, initial encounter; Z79.899 Other long term (current) drug therapy; Z51.5 Encounter for palliative care; Z66 Do not resuscitate; Y92.129 Unspecified place in nursing home as the place of occurrence of the external cause
CPT/HCPCS: 36415; 70450; 71045; 72125; 72170; 73501; 73552; 76000; 80048; 80053; 81001; 83735; 84100; 84484; 85025; 86850; 86900; 86901; 87428; 90715; 93005; 96360; 96361; 97162; 97166; 97530; 97535; 99285; C1713; J7030; J7120; A4216; J2405; J3486